=== PATIENT | female | born 1975 ===

== ENCOUNTER 2017-11-19 20:34 | Emergency (ER) | payer SELFPAY ==
[2017-11-19 20:34] VITALS: BMI 29.0
[2017-11-19] MEDS ORDERED: Sodium Chloride 0.9% 1,000 ML IV STA (21:22)
--- NOTE | 2017-11-19 21:57 | ED PDOC ---
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 States that she is having R sided back pain radiating to the front of her abdomen and has only been producing small amounts of urine but denies dysuria nor hematuria. She also endorses leg cramps and mild throbbing headache as well. Denies cough, sick contacts, vomiting, diarrhea. PMD: [facility] Past Medical History Reviewed: Historical Data, Nursing Documentation, Vital Signs Vital Signs: Last Vital Signs Temp 103.2 F H 11/19/17 20:55 Pulse 113 H 11/19/17 20:55 Resp 19 11/19/17 20:55 BP 122/69 11/19/17 20:55 Pulse Ox 100 11/19/17 20:55 - Medical History PMH: Deep Vein Thrombosis Denies: Chronic Kidney Disease - Family History Family History: States: Unknown Family Hx - Home Medications Home Medications: Ambulatory Orders Medication Instructions Recorded Aspirin [Ecotrin] 81 mg PO DAILY 09/10/15 Multivitamin/Iron/Folic Acid 1 tab PO DAILY 09/10/15 [Centrum Complete Multivit Tab] Doxycycline Hyclate 100 mg PO BID #22 capsule 09/13/15 Naproxen [Naprosyn] 500 mg PO Q12 #28 tablet 09/13/15 metroNIDAZOLE [Flagyl] 500 mg PO BID #22 tab 09/13/15 Levofloxacin [Levaquin] 750 mg PO DAILY 10 Days #10 tablet 11/20/17 - Allergies Allergies/Adverse Reactions: Allergies Allergy/AdvReac Type Severity Reaction Status Date / Time No Known Allergies Allergy Verified 09/10/15 10:58 Review of Systems ROS Statement: Except As Marked, All Systems Reviewed And Found Negative Constitutional: Positive for: Fever, Chills Genitourinary Female: Positive for: Other (Hesitancy) Musculoskeletal: Positive for: Back Pain Physical Exam - Reviewed Nursing Documentation Reviewed: Yes Vital Signs Reviewed: Yes - Physical Exam Appears: Positive for: Well, Non-toxic, Uncomfortable Head Exam: Positive for: ATRAUMATIC, NORMAL INSPECTION, NORMOCEPHALIC Skin: Positive for: Normal Color, Warm, DRY Eye Exam: Positive for: EOMI, Normal appearance, PERRL ENT: Positive for: Normal ENT Inspection Neck: Positive for: Normal, Painless ROM Cardiovascular/Chest: Positive for: Regular Rate, Rhythm Respiratory: Positive for: CNT, Normal Breath Sounds Gastrointestinal/Abdominal: Positive for: Normal Exam, Soft Back: Positive for: R CVA Tenderness Extremity: Positive for: Normal ROM. Negative for: Tenderness, Pedal Edema Neurologic/Psych: Positive for: Alert, Oriented - Laboratory Results Result Diagrams: 11/19/17 21:51 11/19/17 21:51 - ECG O2 Sat by Pulse Oximetry: 100 Pulse Ox Interpretation: Normal Medical Decision Making Medical Decision MakinPM Patient presenting with fever, back pain -patient febrile and tachycardic -possibly septic, source likely urinary, possibly UTI v. pyelo -will give fluids, labs, toradol, APAP, and CT [id number] EXAM: CT Abdomen and Pelvis With Intravenous Contrast EXAM DATE/TIME: 11/19/2017 9:58 PM CLINICAL HISTORY: 42 years old, female; Pain; Abdominal pain; Localized; Right; Prior surgery; Surgery date: 6+ months; Surgery type: ; Additional info: Fever, r sided back pain TECHNIQUE: Axial computed tomography images of the abdomen and pelvis with intravenous contrast. All CT scans at this facility use at least one of these dose optimization techniques: automated exposure control; mA and/or kV adjustment per patient size (includes targeted exams where dose is matched to clinical indication); or iterative reconstruction. Coronal and sagittal reformatted images were created and reviewed. CONTRAST: 90 mL of [id number] administered intravenously. COMPARISON: CT - ABD PELVIS W/O PO OR IV CONT 09/10/2015 12:40 PM FINDINGS: Lung bases: Unremarkable. No mass. No consolidation. ABDOMEN: Liver: Unremarkable. No mass. Gallbladder and bile ducts: Unremarkable. No calcified stones. No ductal dilation. Pancreas: Unremarkable. No mass. No ductal dilation. Spleen: Unremarkable. No splenomegaly. Adrenals: Unremarkable. No mass. Kidneys and ureters: Striated nephrograms the right kidney mostly in the upper pole. Perinephric stranding surrounds the entire right kidney. Mild right ureteral increase conspicuity. No significant hydronephrosis. No renal or ureteral calculi. No renal or perirenal abscess. Stomach and bowel: Unremarkable. No obstruction. No mucosal thickening. PELVIS: Appendix: No findings to suggest acute appendicitis. Bladder: Unremarkable. No mass. ASAEL ALMONTE | Preliminary Radiology Report DEALERSHIP MANAGER (QA) DISCREPANCY? If there is a discrepancy between the preliminary and final interpretation, please notify [facility] via [email or web address]. If you do not have access to our QA portal, call our QA team at [phone] CONFIDENTIALITY STATEMENT This report is intended only for the use of the referring physician, and only in accordance with law, If you received this in error, call [phone] Page 2 of 2 Reproductive: Unremarkable as visualized. ABDOMEN and PELVIS: Intraperitoneal space: Unremarkable. No free air. No significant fluid collection. Bones/joints: No acute fracture. No dislocation. Soft tissues: Unremarkable. Vasculature: Unremarkable. No abdominal aortic aneurysm. Lymph nodes: Unremarkable. No enlarged lymph nodes. IMPRESSION: Acute right pyelonephritis. Thank you for allowing us to participate in the care of your patient. Dictated and Authenticated by: Román Mayen MD 11/20/2017 12:10 AM Eastern Time ([place] & [place]) Patient is feeling better. WBC and lactate are normal. CT shows pyelonephritis. Vitals improved significantly. Will give IV levoquin and d/c with PO. Return precautions were discussed. Patient discharged in well appearing condition. Disposition - Clinical Impression Clinical Impression: Pyelonephritis - Disposition Referrals: [facility] [Outside] Disposition: Routine/Home Disposition Time: 00:00 Condition: IMPROVED Prescriptions: Levofloxacin [Levaquin] 750 mg PO DAILY 10 Days #10 tablet Instructions: Kidney Infection Forms: [facility] (Azerbaijani) Print Language: PASHTO
[2017-11-19 22:26] LABS: BASO % 0.4 % (0.0-2.0); EOS % 0.1 % (0.0-4.0); HEMOGLOBIN 13.9 g/dL (12.0-16.0); LYMPH # 1.2 K/uL (1.0-4.3); LYMPH % 11.1 % (20.0-40.0); MEAN CELL VOLUME 82.1 fl (81.0-99.0); MEAN CORPUSCULAR HEMOGLOBIN 27.6 pg (27.0-31.0); MEAN CORPUSCULAR HGB CONC 33.6 g/dL (33.0-37.0); MEAN PLATELET VOLUME 8.2 fl (7.2-11.7); MONO # 0.8 K/uL (0.0-0.8); MONO % 7.6 % (0.0-10.0); NEUT # 8.6 K/uL (1.8-7.0); NEUT % 80.8 % (50.0-75.0); NRBC % 0.1 % (0.0-0.0); RBC 5.05 Mil/uL (3.80-5.20); RED CELL DISTRIBUTION WIDTH 13.7 % (11.5-14.5); WHITE BLOOD COUNT 10.7 K/uL (4.8-10.8)
[2017-11-19 22:26] LABS: VENOUS BLOOD GAS BASE EXCESS 4.9 mmol/L (0.0-2.0); VENOUS BLOOD GAS PCO2 35 mmHg (40-60); VENOUS BLOOD PH 7.51 (7.32-7.43)
[2017-11-19 22:32] LABS: INR 1.4; PROTHROMBIN TIME 15.4 Seconds (9.8-13.1)
[2017-11-19 22:35] LABS: PARTIAL THROMBOPLASTIN TIME 34.9 Seconds (25.6-37.1)
[2017-11-19 22:40] LABS: ALBUMIN 4.1 g/dL (3.5-5.0); ALT/SGPT 25 U/L (9-52); AST/SGOT 28 U/L (14-36); BLOOD UREA NITROGEN 8 mg/dl (7-17); GFR NON-AFRICAN AMERICAN > 60
[2017-11-19] MEDS ORDERED: Iohexol 300 100 ML IJ ONE (22:52)
[2017-11-19] MEDS ORDERED: Sodium Chloride 0.9% 50 ML IV ONE (22:52)
[2017-11-19 23:12] LABS: SQUAMOUS EPITHIAL 1 /hpf (0-5); URINE BACTERIA MOD (<OCC); URINE BILIRUBIN NEGATIVE (NEGATIVE); URINE BLOOD MODERATE (NEGATIVE); URINE CLARITY SLIGHTY-CLOUDY (Clear); URINE COLOR YELLOW (YELLOW); URINE GLUCOSE (UA) NEG (Normal); URINE LEUKOCYTE ESTERASE LARGE Leu/uL (Negative); URINE PROTEIN 30 mg/dL (NEGATIVE); URINE UROBILINOGEN 0.2-1.0 mg/dL (0.2-1.0)
[2017-11-20] MEDS ORDERED: levoFLOXacin 750 mg in D5W 150 ML BAG IVPB STA ×2 (00:19→00:27)
[2017-11-20] MEDS ORDERED: levoFLOXacin 750 mg in D5W 750 MG/150 ML BAG IVPB STA (00:26)
[2017-11-20] MEDS ORDERED: Sodium Chloride 0.9% 1,000 ML IV STA (03:10)
[2017-11-20 05:51] VITALS: RESP 16
[2017-11-20 05:55] VITALS: BP 106/60; PULSE 98; TEMP 99.2; O2SAT 99
--- NOTE | 2017-11-20 08:22 | CARD ---
APPROVED REPORT Date of service: 11/20/2017 EKG Measurement Heart [id number] <Conclusion> Normal sinus rhythm Moderate voltage criteria for LVH, may be normal variant Nonspecific T wave abnormality Abnormal ECG
--- NOTE | 2017-11-20 09:34 | RAD ---
Date of service: 11/19/2017 HISTORY: Sepsis Patient COMPARISON: No prior. FINDINGS: LUNGS: No active pulmonary disease. PLEURA: No significant pleural effusion identified, no pneumothorax apparent. CARDIOVASCULAR: Normal. OSSEOUS STRUCTURES: No significant abnormalities. VISUALIZED UPPER ABDOMEN: Normal. OTHER FINDINGS: None. IMPRESSION: No active disease.
--- NOTE | 2017-11-20 10:32 | CT ---
Date of service: 11/19/2017 PROCEDURE: CT Abdomen and Pelvis with contrast HISTORY: fever, R sided back pain COMPARISON: 09/10/2015 TECHNIQUE: Contrast dose: 90 mL Omnipaque 300 Radiation dose: Total exam DLP = 544.04 mGy-cm. This CT exam was performed using one or more of the following dose reduction techniques: Automated exposure control, adjustment of the mA and/or kV according to patient size, and/or use of iterative reconstruction technique. FINDINGS: LOWER THORAX: Unremarkable. LIVER: Minimal hepatomegaly. The liver measures 19.8 cm craniocaudal. Smooth contour. No mass. Normal attenuation. No biliary dilatation. GALLBLADDER AND BILE DUCTS: Unremarkable. PANCREAS: Unremarkable. No gross lesion or ductal dilatation. SPLEEN: Unremarkable. ADRENALS: Unremarkable. No mass. KIDNEYS AND URETERS: Multiple wedge-shaped areas of decreased cortical enhancement in the right kidney and solitary small wedge-shaped area of diminished cortical enhancement in the upper pole left kidney. Findings consistent with bilateral acute pyelonephritis, right greater than left. No evidence of renal abscess. No renal calculus or urinary tract obstruction. No mass identified. Minimal right perinephric fluid/stranding consistent with acute infectious/inflammatory process. No left perinephric fluid or stranding. VASCULATURE: Unremarkable. No aortic aneurysm. BOWEL: Unremarkable. No obstruction. No gross mural thickening. APPENDIX: Normal appendix. PERITONEUM: Unremarkable. No free fluid. No free air. LYMPH NODES: Unremarkable. No enlarged lymph nodes. BLADDER: Poorly distended REPRODUCTIVE: Normal uterus BONES: No acute fracture. OTHER FINDINGS: None. IMPRESSION: Bilateral pyelonephritis, right greater than left. No abscess identified. No evidence of urinary tract obstruction. Minimal hepatomegaly. No additional abnormality. The preliminary findings for this examination were reported by [facility] at 12:10 a.m. on 11/20/2017. There is concurrence of this report with the preliminary findings.
== END 2017-11-20 05:50 | disposition home or self-care (01) ==
LOC: H.ER 20:34
DX: N10 Acute pyelonephritis (principal); Z86.718 Personal history of other venous thrombosis and embolism
CPT/HCPCS: 71045; 74177; 80053; 81003; 81025; 82803; 83735; 84100; 85025; 85610; 85730; 87040; 87086; 87181; 87205; 93005; 96360; 96374; 99285; J1885; J7030; Q9967

== ENCOUNTER 2017-11-20 17:52 | Inpatient (IN) | payer MEDICAID, SELFPAY ==
[2017-11-20 17:53] VITALS: BMI 29.0
[2017-11-20] MEDS ORDERED: Sodium Chloride 0.9% 1,000 ML IV STA (19:11)
[2017-11-20] MEDS ORDERED: levoFLOXacin 750 mg in D5W 150 ML BAG IVPB STA (19:13)
[2017-11-20] MEDS ORDERED: levoFLOXacin 750 mg in D5W 750 MG/150 ML BAG IVPB STA (19:16)
[2017-11-20] MEDS ORDERED: levoFLOXacin 750 mg in D5W 750 MG/150 ML BAG IVPB ONE (19:22)
[2017-11-20 19:48] LABS: VENOUS BLOOD GAS BASE EXCESS 1.2 mmol/L (0.0-2.0); VENOUS BLOOD GAS PCO2 44 mmHg (40-60); VENOUS BLOOD GAS PO2 29 mm/Hg (30-55); VENOUS BLOOD PH 7.39 (7.32-7.43)
[2017-11-20 19:48] LABS: BASO % 0.4 % (0.0-2.0); EOS % 0.2 % (0.0-4.0); HEMOGLOBIN 12.4 g/dL (12.0-16.0); LYMPH # 1.4 K/uL (1.0-4.3); LYMPH % 13.3 % (20.0-40.0); MEAN CELL VOLUME 83.2 fl (81.0-99.0); MEAN CORPUSCULAR HEMOGLOBIN 27.2 pg (27.0-31.0); MEAN CORPUSCULAR HGB CONC 32.7 g/dL (33.0-37.0); MEAN PLATELET VOLUME 8.3 fl (7.2-11.7); MONO % 9.2 % (0.0-10.0); NEUT # 8.2 K/uL (1.8-7.0); NEUT % 76.9 % (50.0-75.0); RBC 4.54 Mil/uL (3.80-5.20); RED CELL DISTRIBUTION WIDTH 13.7 % (11.5-14.5); WHITE BLOOD COUNT 10.7 K/uL (4.8-10.8)
--- NOTE | 2017-11-20 19:52 | ED PDOC ---
HPI: Abdomen Time Seen by Provider: 11/20/17 19:07 Chief Complaint (Nursing): Abdominal Pain History Per: Patient Onset/Duration Of Symptoms: Days Current Symptoms Are (Timing): Still Present Associated Symptoms: Fever, Nausea Additional Complaint(s): Patient returns to ER today for worsening pain and continued fevers. Patient was diagnosed with pyelonephritis on R kidney yesterday, received one dose of IV levoquin and was discharged. Patient's TMAx was 103 yesterday. Today had continued fevers all day and worsening pain with nausea and urinary hesitancy. Past Medical History Reviewed: Historical Data, Vital Signs Vital Signs: Last Vital Signs Temp 98.4 F 11/21/17 00:16 Pulse 74 11/21/17 00:16 Resp 18 11/21/17 00:16 BP 99/64 L 11/21/17 00:16 Pulse Ox 100 11/21/17 00:16 - Medical History PMH: Deep Vein Thrombosis Denies: Chronic Kidney Disease - Family History Family History: States: Unknown Family Hx - Home Medications Home Medications: Ambulatory Orders Medication Instructions Recorded Aspirin [Ecotrin] 81 mg PO DAILY 11/20/17 - Allergies Allergies/Adverse Reactions: Allergies Allergy/AdvReac Type Severity Reaction Status Date / Time No Known Allergies Allergy Verified 09/10/15 10:58 Review of Systems ROS Statement: Except As Marked, All Systems Reviewed And Found Negative Constitutional: Positive for: Fever, Chills Gastrointestinal: Positive for: Nausea, Abdominal Pain Physical Exam - Reviewed Nursing Documentation Reviewed: Yes Vital Signs Reviewed: Yes - Physical Exam Appears: Positive for: Well, Non-toxic, No Acute Distress Head Exam: Positive for: ATRAUMATIC, NORMAL INSPECTION, NORMOCEPHALIC Skin: Positive for: Normal Color, Warm, DRY Eye Exam: Positive for: EOMI, Normal appearance, PERRL ENT: Positive for: Normal ENT Inspection Neck: Positive for: Normal, Painless ROM Cardiovascular/Chest: Positive for: Regular Rate, Rhythm Respiratory: Positive for: CNT, Normal Breath Sounds Gastrointestinal/Abdominal: Positive for: Normal Exam, Bowel Sounds, Soft. Negative for: Tenderness, Organomegaly, Mass, Distended, Guarding Back: Positive for: Normal Inspection, R CVA Tenderness Extremity: Positive for: Normal ROM Neurologic/Psych: Positive for: Alert, Oriented - Laboratory Results Result Diagrams: 11/20/17 19:40 11/20/17 19:40 - ECG O2 Sat by Pulse Oximetry: 100 Pulse Ox Interpretation: Normal Medical Decision Making Medical Decision MakinAM Patient returns for worsening pain and continued fevers after diagnosis with pyelonephritis -Patient will require admission for outpatient failure of pyelo -Pending labs, ABx, cultures -Of note patient had Gram Positive Rods on blood cultures from yesterday Disposition - Clinical Impression Clinical Impression: Pyelonephritis - Disposition Disposition Time: 20:00 Condition: FAIR
[2017-11-20 19:55] LABS: SQUAMOUS EPITHIAL < 1 /hpf (0-5); URINE BILIRUBIN NEGATIVE (NEGATIVE); URINE BLOOD SMALL (NEGATIVE); URINE CLARITY CLEAR (Clear); URINE COLOR YELLOW (YELLOW); URINE GLUCOSE (UA) NEG (Normal); URINE LEUKOCYTE ESTERASE TRACE Leu/uL (Negative); URINE PROTEIN 30 mg/dL (NEGATIVE); URINE UROBILINOGEN 0.2-1.0 mg/dL (0.2-1.0)
[2017-11-20 20:07] LABS: BLOOD UREA NITROGEN 5 mg/dl (7-17); CALCIUM 8.4 mg/dL (8.4-10.2); GFR NON-AFRICAN AMERICAN > 60
--- NOTE | 2017-11-20 21:32 | CP.PCM.HP ---
History of Present Illness - History of Present Illness History of Present Illness: 42 yo ,f, PMhx/o LLE DVT presents to ED c/o right flank pain started 4 days ago , radiated to RUQ and right leg, intermittent, associated with subjective fever 3 times/day , chills, nausea w/o vomiting and occs headache. Patient with menses for the last 6 days. She denies dysuria, urgency, chest pain, cough, SOB , dizziness. calf pain, leg swelling. Patient evaluated in ED yesterday, given Levaquin IV for pyelonephritis and returns to Ed with persistent fever and right flank pain. Blood cx done yesterday showed gram neg rods On my evaluation patient AAOx3, hemodynamically stable, no acute distress PMD: [facility]. Last visit 06/2017 dr blunt PMHx: o LLE DVT in 2011 Allergies: NKDA Meds: aspirin 81 mg daily PSurghx: c section x 2 PSHx: =ETOH social, neg rect drugs, cig Code status: Full code Next of kin: Madalyn Mar Ed course VS: T 100.5 F Pulse 100 Resp 16 BP 108/64 PE: CVAT b/l. Abd TD RUQ Labs: CBC, CMP, VBG nl. UA hematuria, nitrate neg, leukocyte sterace trace, leukocyturia. urine preg neg. -EKG pending Imaging: B/l pyelonephritis, right greater than left. No urinary tract obst. Minimal hepatomegaly Meds: Levaquin 750 mg daily, Toradol 30 mg Iv daily, NS 1l Present on Admission - Present on Admission Any Indicators Present on Admission: Yes History of DVT/PE: Yes History of Uncontrolled Diabetes: No Urinary Catheter: No Decubitus Ulcer Present: No Review of Systems - Review of Systems All systems: reviewed and no additional remarkable complaints except - Gastrointestinal Gastrointestinal: Abdominal Pain, Nausea - Genitourinary Genitourinary: Flank Pain - Neurological Neurological: Headaches Past Patient History - Past Medical History & Family History Past Medical History?: Yes - Past Social History Smoking Status: Never Smoked - CARDIAC Hx Cardiac Disorders: No - PULMONARY Hx Respiratory Disorders: No - NEUROLOGICAL Hx Neurological Disorder: No - HEENT Hx HEENT Problems: No - RENAL Hx Chronic Kidney Disease: No - ENDOCRINE/METABOLIC Hx Endocrine Disorders: No - HEMATOLOGICAL/ONCOLOGICAL Hx Blood Disorders: Yes Other/Comment: DVT 2011 - INTEGUMENTARY Hx Dermatological Problems: No - MUSCULOSKELETAL/RHEUMATOLOGICAL Hx Musculoskeletal Disorders: No Hx Falls: No - GASTROINTESTINAL Hx Gastrointestinal Disorders: No - GENITOURINARY/GYNECOLOGICAL Hx Genitourinary Disorders: No - PSYCHIATRIC Hx Substance Use: No - SURGICAL HISTORY Hx Section: Yes (x2) - ANESTHESIA Hx Anesthesia: Yes Hx Anesthesia Reactions: No Hx Malignant Hyperthermia: No Meds Allergies/Adverse Reactions: Allergies Allergy/AdvReac Type Severity Reaction Status Date / Time No Known Allergies Allergy Verified 09/10/15 10:58 Physical Exam - Constitutional Appears: Non-toxic, No Acute Distress - Head Exam Head Exam: ATRAUMATIC, NORMOCEPHALIC - Eye Exam Eye Exam: Normal appearance - ENT Exam ENT Exam: Mucous Membranes Moist - Neck Exam Neck exam: Positive for: Normal Inspection - Respiratory Exam Respiratory Exam: Clear to Auscultation Bilateral. absent: Rales, Rhonchi, Wheezes - Cardiovascular Exam Cardiovascular Exam: REGULAR RHYTHM, +S1, +S2 - GI/Abdominal Exam GI & Abdominal Exam: Normal Bowel Sounds, Soft, Tenderness (RUQ). absent: Guarding, Rebound - Extremities Exam Extremities exam: Positive for: normal inspection. Negative for: pedal edema - Back Exam Back exam: CVA tenderness (L), CVA tenderness (R) - Neurological Exam Neurological exam: Alert, Oriented x3 - Psychiatric Exam Psychiatric exam: Normal Affect, Normal Mood - Skin Skin Exam: Intact Results - Vital Signs Recent Vital Signs: Last Vital Signs Temp 100.5 F H 11/20/17 18:21 Pulse 100 H 11/20/17 18:21 Resp 16 11/20/17 18:21 BP 108/64 11/20/17 18:21 Pulse Ox 100 11/20/17 19:53 - Labs Result Diagrams: 11/20/17 19:40 11/20/17 19:40 Labs: Laboratory Results - last 24 hr 11/20/17 11/20/17 11/20/17 19:40 19:40 19:40 WBC 10.7 RBC 4.54 Hgb 12.4 Hct 37.8 MCV 83.2 MCH 27.2 MCHC 32.7 L RDW 13.7 Plt Count 175 MPV 8.3 Neut % (Auto) 76.9 H Lymph % (Auto) 13.3 L [place] % (Auto) 9.2 Eos % (Auto) 0.2 Baso % (Auto) 0.4 Neut # (Auto) 8.2 H Lymph # (Auto) 1.4 [place] # (Auto) 1.0 H Eos # (Auto) 0.0 Baso # (Auto) 0.0 pO2 VBG pH VBG pCO2 VBG HCO3 VBG Total CO2 VBG O2 Sat (Calc) VBG Base Excess VBG Potassium Glucose Lactate FiO2 Sodium 138 Potassium 3.6 Chloride 106 Carbon Dioxide 24 Anion Gap 12 BUN 5 L Creatinine 0.6 L Est GFR ( Amer) > 60 Est GFR (Non-Af Amer) > 60 Random Glucose 103 Calcium 8.4 Venous Blood Potassium Urine Color Yellow Urine Clarity Clear Urine pH 7.0 Ur Specific [place] 1.009 Urine Protein 30 Urine Glucose (UA) Neg Urine Ketones Negative Urine Blood Small Urine Nitrate Negative Urine Bilirubin Negative Urine Urobilinogen 0.2-1.0 Ur Leukocyte Esterase Trace Urine RBC (Auto) 5 H Urine Microscopic WBC 10 H Ur Squamous Epith Cells < 1 11/20/17 19:42 WBC RBC Hgb Hct MCV MCH MCHC RDW Plt Count MPV Neut % (Auto) Lymph % (Auto) [place] % (Auto) Eos % (Auto) Baso % (Auto) Neut # (Auto) Lymph # (Auto) [place] # (Auto) Eos # (Auto) Baso # (Auto) pO2 29 L VBG pH 7.39 VBG pCO2 44 VBG HCO3 24.7 VBG Total CO2 28.0 VBG O2 Sat (Calc) 40.5 VBG Base Excess 1.2 VBG Potassium 3.1 L Glucose 101 Lactate 1.2 FiO2 21.0 Sodium 137.0 Potassium Chloride 104.0 Carbon Dioxide Anion Gap BUN Creatinine Est GFR ( Amer) Est GFR (Non-Af Amer) Random Glucose Calcium Venous Blood Potassium 3.1 L Urine Color Urine Clarity Urine pH Ur Specific [place] Urine Protein Urine Glucose (UA) Urine Ketones Urine Blood Urine Nitrate Urine Bilirubin Urine Urobilinogen Ur Leukocyte Esterase Urine RBC (Auto) Urine Microscopic WBC Ur Squamous Epith Cells Assessment & Plan - Assessment and Plan (Free Text) Plan: 42 yo ,f, PMhx/o LLE DVT Admitted for pyleonephrytis, sepsis and bacteremia 1) Acute pyelonephritis -Ua+, CT abd: b/L more right side -S/p Levaquin in Ed x2 -c/w Levaquin 750 mg IV daily -will cover also with zosyn -IV fluids NS 110 ml/h -f/u Urine cx, CBC 2) Sepsis with Bacteremia -SIRS + UA + Blood cx + gram neg rods -2/2 pyelonephritis -VBG nl, lactic acid normal -c/w Levaquin -Added Zosyn to cover pseudomona -ID consult suggested -f/u urine cx, blood cx sensitivity 3) Hx/o DVT -right leg DVT in 2011 4) DVT Prophylaxis Lovenox 40 mg sc daily
[2017-11-20] MEDS ORDERED: Sodium Chloride 0.9% 1,000 ML IV SCH (22:00)
[2017-11-21] MEDS: Piperacillin/Tazobact 4.5 GM in Sodium Chloride 0.9% 100 ML IVPB SCH ×4 (04:30→23:00)
[2017-11-21 07:45] LABS: BASO % 0.2 % (0.0-2.0); EOS # 0.1 K/uL (0.0-0.7); EOS % 0.8 % (0.0-4.0); HEMOGLOBIN 11.5 g/dL (12.0-16.0); LYMPH # 1.4 K/uL (1.0-4.3); LYMPH % 17.8 % (20.0-40.0); MEAN CELL VOLUME 81.7 fl (81.0-99.0); MEAN CORPUSCULAR HEMOGLOBIN 27.7 pg (27.0-31.0); MEAN CORPUSCULAR HGB CONC 33.9 g/dL (33.0-37.0); MEAN PLATELET VOLUME 8.7 fl (7.2-11.7); MONO # 0.7 K/uL (0.0-0.8); MONO % 9.7 % (0.0-10.0); NEUT # 5.5 K/uL (1.8-7.0); NEUT % 71.5 % (50.0-75.0); RBC 4.15 Mil/uL (3.80-5.20); RED CELL DISTRIBUTION WIDTH 13.9 % (11.5-14.5); WHITE BLOOD COUNT 7.7 K/uL (4.8-10.8)
--- NOTE | 2017-11-21 08:18 | CARD ---
APPROVED REPORT Date of service: 11/20/2017 <Conclusion> Normal sinus rhythm Minimal voltage criteria for LVH, may be normal variant Borderline ECG
[2017-11-21 08:22] LABS: ALB/GLOB RATIO 0.9 (1.0-2.1); ALT/SGPT 22 U/L (9-52); AST/SGOT 23 U/L (14-36); BLOOD UREA NITROGEN 6 mg/dl (7-17); CALCIUM 7.8 mg/dL (8.4-10.2); GFR NON-AFRICAN AMERICAN > 60
[2017-11-21] MEDS ORDERED: Potassium Chloride 20 mEq ER Tab PO ONE (08:26)
--- NOTE | 2017-11-21 08:28 | CP.PCM.PN ---
Subjective - Date & Time of Evaluation Date of Evaluation: 11/21/17 Time of Evaluation: 08:28 - Subjective Subjective: No acute overnight events. Pt endorsing mild R flank pain b/l. Denies n/v chills and remains without fever. Objective - Vital Signs/Intake and Output Vital Signs (last 24 hours): Temp Pulse Resp BP Pulse Ox 98.5 F 82 18 111/67 98 11/21/17 07:58 11/21/17 07:58 11/21/17 07:58 11/21/17 07:58 11/21/17 07:58 - Medications Medications: Current Medications Acetaminophen (Tylenol 325mg Tab) 650 mg PO Q6 PRN PRN Reason: Pain, Mild (1-3) Acetaminophen (Tylenol 325mg Tab) 650 mg PO Q6 PRN PRN Reason: Fever >100.4 F Enoxaparin Sodium (Lovenox) 40 mg SC DAILY DEANDRE PRN Reason: Protocol Piperacillin Sod/Tazobactam (Sod 4.5 gm/ Sodium Chloride) 100 mls @ 100 mls/hr IVPB Q6 DEANDRE PRN Reason: Protocol Last Admin: 11/21/17 04:30 Dose: 100 mls/hr Sodium Chloride (Sodium Chloride 0.9%) 1,000 mls @ 130 mls/hr IV .[id number] [facility] Stop: 11/21/17 21:53 Vancomycin HCl 1 gm/ Sodium (Chloride) 250 mls @ 166.667 mls/hr IVPB DAILY DEANDRE PRN Reason: Protocol Ketorolac Tromethamine (Toradol) 15 mg IVP Q6 PRN PRN Reason: Pain, moderate (4-7) Last Admin: 11/21/17 05:26 Dose: 15 mg Morphine Sulfate (Morphine) 2 mg IVP Q6 PRN PRN Reason: Pain, severe (8-10) Ondansetron HCl (Zofran Inj) 4 mg IVP Q6 PRN PRN Reason: Nausea/Vomiting Potassium Chloride (K-Dur 20 Meq Er Tab) 40 meq PO ONCE ONE Stop: 11/21/17 08:27 - Labs Labs: 11/21/17 06:00 11/21/17 06:00 - Constitutional Appears: No Acute Distress - Head Exam Head Exam: NORMAL INSPECTION - Eye Exam Eye Exam: EOMI, Normal appearance - ENT Exam ENT Exam: Mucous Membranes Moist - Respiratory Exam Respiratory Exam: Clear to Ausculation Bilateral, NORMAL BREATHING PATTERN. absent: Wheezes - Cardiovascular Exam Cardiovascular Exam: REGULAR RHYTHM, +S1, +S2 - GI/Abdominal Exam GI & Abdominal Exam: Soft, Normal Bowel Sounds. absent: Tenderness - Extremities Exam Extremities Exam: Normal Inspection. absent: Calf Tenderness, Pedal Edema - Back Exam Back Exam: NORMAL INSPECTION. absent: CVA tenderness (L), CVA tenderness (R) - Neurological Exam Neurological Exam: Alert, Awake - Psychiatric Exam Psychiatric exam: Normal Mood Assessment and Plan - Assessment and Plan (Free Text) Assessment: Assessment/Plan: 42 YO Female with PMhx of LLE DVT admitted for pyleonephrytis, sepsis and bacteremia. Sepsis with bacteremia -likely urosepsis, improving -SIRS with bcx pos x 2 on 11/19 for gram neg rods -s/p Levaquin in ED x2 -echo pending -cont Vanc (D1) and Zosyn (D2) -cont IVFs -will consider ID consult UTI -Ucx pos, UA sig trace leukes -CT 11/21/27: suggestive bilateral pyelonephritis (R>L) -hx of recurrent UTI -Ucx 11/19 sig for gram neg rods, UA 11/20 sig for trace leukes -cont with Vanc and zosyn -follow up ucx and bcx final results Hx/o DVT -right leg DVT in 2011 -not on anticoagulation DVT Prophylaxis Lovenox 40 mg sc daily
[2017-11-21] MEDS: Enoxaparin 40 mg Syringe SC SCH (08:53)
[2017-11-21] MEDS: Sodium Chloride 0.9% 1,000 ML IV SCH ×2 (08:53→16:50)
[2017-11-21] MEDS ORDERED: levoFLOXacin 750 mg in D5W 750 MG/150 ML BAG IVPB SCH (20:00)
[2017-11-22] MEDS: Piperacillin/Tazobact 4.5 GM in Sodium Chloride 0.9% 100 ML IVPB SCH ×2 (04:10→09:26)
[2017-11-22 07:52] LABS: BLOOD UREA NITROGEN 4 mg/dl (7-17); GFR NON-AFRICAN AMERICAN > 60
[2017-11-22] MEDS: Enoxaparin 40 mg Syringe SC SCH (09:27)
--- NOTE | 2017-11-22 15:49 | CP.PCM.PN ---
Subjective - Date & Time of Evaluation Date of Evaluation: 11/22/17 Time of Evaluation: 08:45 - Subjective Subjective: No overnight events. Patient feeling better this AM. Complaining of nausea, no vomiting. Pain is improving. Tolerating diet despite nausea but would like liquid diet instead. No fevers. blood culture (+) x 3, sensitivities reviewed, abx changed to Rocephin 2gm daily. Awaiting Echocardiogram. Objective - Vital Signs/Intake and Output Vital Signs (last 24 hours): Temp Pulse Resp BP Pulse Ox 99.5 F 63 18 128/75 97 11/22/17 13:00 11/22/17 13:00 11/22/17 13:00 11/22/17 13:00 11/22/17 13:00 - Medications Medications: Current Medications Acetaminophen (Tylenol 325mg Tab) 650 mg PO Q6 PRN PRN Reason: Pain, Mild (1-3) Acetaminophen (Tylenol 325mg Tab) 650 mg PO Q6 PRN PRN Reason: Fever >100.4 F Enoxaparin Sodium (Lovenox) 40 mg SC DAILY [facility] PRN Reason: Protocol Last Admin: 11/22/17 09:27 Dose: 40 mg Ceftriaxone Sodium 2 gm/ (Sodium Chloride) 100 mls @ 100 mls/hr IVPB DAILY [facility] PRN Reason: Protocol Ketorolac Tromethamine (Toradol) 15 mg IVP Q6 PRN PRN Reason: Pain, moderate (4-7) Last Admin: 11/21/17 23:20 Dose: 15 mg Morphine Sulfate (Morphine) 2 mg IVP Q6 PRN PRN Reason: Pain, severe (8-10) Ondansetron HCl (Zofran Odt) 4 mg PO Q8H PRN PRN Reason: Nausea/Vomiting - Labs Labs: 11/21/17 06:00 11/22/17 06:30 - Constitutional Appears: Non-toxic, No Acute Distress - Head Exam Head Exam: ATRAUMATIC, NORMAL INSPECTION, NORMOCEPHALIC - Respiratory Exam Respiratory Exam: Clear to Ausculation Bilateral, NORMAL BREATHING PATTERN - Cardiovascular Exam Cardiovascular Exam: REGULAR RHYTHM, +S1, +S2. absent: Bradycardia, Tachycardia - GI/Abdominal Exam GI & Abdominal Exam: Soft, Normal Bowel Sounds. absent: Distended, Guarding - Extremities Exam Extremities Exam: Full ROM, Normal Inspection. absent: Pedal Edema - Neurological Exam Neurological Exam: Alert, Awake, CN II-XII Intact, Normal Gait, Oriented x3 - Psychiatric Exam Psychiatric exam: Normal Affect, Normal Mood Assessment and Plan - Assessment and Plan (Free Text) Assessment: 42 YO Female with PMhx of LLE DVT admitted for pyleonephrytis, sepsis and bacteremia. Awaiting echo, antibiotics adjusted now that sensitivities available. Patient switched to Liquid diet due to preference, having some nausea. Zofran ordered. Remains afebrile, without leukocytosis. Sepsis with bacteremia, UTI+ -likely urosepsis. -SIRS with bcx pos x 2 on 11/19 for gram neg rods -repeat blood cultures NGTD from 11/20 -s/p Levaquin in ED x2, s/p cont Vanc (D2) and Zosyn (D3) -echo pending -will d/c IVF patients BP has been WNL -D/c Zosyn/Vanco - start Rocephin 2gm IV daily -will consider ID consult Hx/o DVT -right leg DVT in 2011 -not on anticoagulation as outpatient DVT Prophylaxis Lovenox 40 mg sc daily
[2017-11-23 07:05] LABS: BASO % 0.6 % (0.0-2.0); EOS # 0.1 K/uL (0.0-0.7); HEMOGLOBIN 11.4 g/dL (12.0-16.0); LYMPH # 1.9 K/uL (1.0-4.3); LYMPH % 31.4 % (20.0-40.0); MEAN CELL VOLUME 81.3 fl (81.0-99.0); MEAN CORPUSCULAR HEMOGLOBIN 27.1 pg (27.0-31.0); MEAN CORPUSCULAR HGB CONC 33.4 g/dL (33.0-37.0); MEAN PLATELET VOLUME 8.8 fl (7.2-11.7); MONO # 0.7 K/uL (0.0-0.8); MONO % 11.1 % (0.0-10.0); NEUT # 3.3 K/uL (1.8-7.0); NEUT % 54.9 % (50.0-75.0); RBC 4.19 Mil/uL (3.80-5.20); RED CELL DISTRIBUTION WIDTH 13.7 % (11.5-14.5); WHITE BLOOD COUNT 5.9 K/uL (4.8-10.8)
[2017-11-23 07:29] LABS: ALB/GLOB RATIO 0.8 (1.0-2.1); ALBUMIN 3.1 g/dL (3.5-5.0); ALT/SGPT 31 U/L (9-52); AST/SGOT 28 U/L (14-36); BLOOD UREA NITROGEN 3 mg/dl (7-17); CALCIUM 8.6 mg/dL (8.4-10.2); GFR NON-AFRICAN AMERICAN > 60
--- NOTE | 2017-11-23 07:39 | CP.PCM.PN ---
Subjective - Date & Time of Evaluation Date of Evaluation: 11/23/17 Time of Evaluation: 07:36 - Subjective Subjective: Fever overnight T max 101.1 Afebrile now. Pt states that flank pain has improved since admission to hospital. Denies dyspnea, chest pain, n/v, chills. Tolerating PO and ambulatory. Objective - Vital Signs/Intake and Output Vital Signs (last 24 hours): Temp Pulse Resp BP Pulse Ox 99 F 60 18 138/77 96 11/23/17 05:00 11/23/17 05:00 11/23/17 05:00 11/23/17 05:00 11/23/17 05:00 - Medications Medications: Current Medications Acetaminophen (Tylenol 325mg Tab) 650 mg PO Q6 PRN PRN Reason: Pain, Mild (1-3) Last Admin: 11/22/17 16:23 Dose: 650 mg Acetaminophen (Tylenol 325mg Tab) 650 mg PO Q6 PRN PRN Reason: Fever >100.4 F Last Admin: 11/23/17 00:25 Dose: 650 mg Enoxaparin Sodium (Lovenox) 40 mg SC DAILY [facility] PRN Reason: Protocol Last Admin: 11/22/17 09:27 Dose: 40 mg Piperacillin Sod/Tazobactam (Sod 3.375 gm/ Sodium Chloride) 100 mls @ 100 mls/ hr IVPB Q6 [facility] PRN Reason: Protocol Ketorolac Tromethamine (Toradol) 15 mg IVP Q6 PRN PRN Reason: Pain, moderate (4-7) Last Admin: 11/21/17 23:20 Dose: 15 mg Morphine Sulfate (Morphine) 2 mg IVP Q6 PRN PRN Reason: Pain, severe (8-10) Ondansetron HCl (Zofran Odt) 4 mg PO Q8H PRN PRN Reason: Nausea/Vomiting - Labs Labs: 11/23/17 06:15 11/23/17 06:15 - Constitutional Appears: No Acute Distress - Head Exam Head Exam: NORMAL INSPECTION - Eye Exam Eye Exam: Normal appearance - ENT Exam ENT Exam: Mucous Membranes Moist - Respiratory Exam Respiratory Exam: Clear to Ausculation Bilateral, NORMAL BREATHING PATTERN. absent: Wheezes - Cardiovascular Exam Cardiovascular Exam: REGULAR RHYTHM, +S1, +S2 - GI/Abdominal Exam GI & Abdominal Exam: Soft, Normal Bowel Sounds. absent: Tenderness - Extremities Exam Extremities Exam: absent: Calf Tenderness, Pedal Edema - Back Exam Back Exam: NORMAL INSPECTION. absent: CVA tenderness (L), CVA tenderness (R) - Neurological Exam Neurological Exam: Alert, Awake Assessment and Plan - Assessment and Plan (Free Text) Assessment: Assessment/Plan: 42 YO Female with PMhx of LLE DVT admitted for pyleonephrytis, sepsis and bacteremia. Sepsis, Bacteremia with +UTI -likely urosepsis, improving -CT 11/21/27: suggestive bilateral pyelonephritis (R>L) -bcx pos x 2 and ucx pos on 11/19 for gram neg rods (sensitivities noted) -bcx neg x 2 11/20; bcx 11/23 pending -s/p Levaquin in ED x2 -d/c Vanc and Zosyn, pt was started on Rocephin -Fever overnight with Rocephin, will switch back to Zosyn (D3) today; Total abx D4 -echo 11/23: no valvular vegetations noted, EF 65% -ID consulted; pending recs Hx/o DVT -right leg DVT in 2011 -not on chronic anticoagulation DVT Prophylaxis Lovenox 40 mg sc daily
[2017-11-23] MEDS: Enoxaparin 40 mg Syringe SC SCH (08:48)
[2017-11-23] MEDS: Piperacillin/Tazobact 3.375 GM in Sodium Chloride 0.9% 100 ML IVPB SCH ×2 (10:46→19:05)
--- NOTE | 2017-11-23 14:22 | CARD ---
APPROVED REPORT Date of service: 11/23/2017 EXAM: Two-dimensional and M-mode echocardiogram with Doppler and color Doppler. Other Information Quality : GoodRhythm : NSR INDICATION Subacute bacterial endocarditis 2D DIMENSIONS IVSd0.99 (0.7-1.1cm)LVDd4.79 (3.9-5.9cm) LVOT Diameter2.15 (1.8-2.4cm)PWd0.86 (0.7-1.1cm) IVSs1.19 (0.8-1.2cm)LVDs3.52 (2.5-4.0cm) FS (%) 26.6 %PWs0.91 (0.8-1.2cm) M-Mode DIMENSIONS Left Atrium (MM)3.59 (2.5-4.0cm)IVSd0.91 (0.7-1.1cm) Aortic Root3.06 (2.2-3.7cm)LVDd5.03 (4.0-5.6cm) Aortic Cusp Exc.2.09 (1.5-2.0cm)PWd1.09 (0.7-1.1cm) IVSs1.15 cmFS (%) 33 % LVDs3.35 (2.0-3.8cm)PWs1.32 cm Aortic Valve AoV Peak Pasmuvap343.8cm/sAoV VTI29.5cmAO Peak GR.8mmHg LVOT Peak Lbgveafi01.8cm/sLVOT VTI19.46cmAO Mean GR.4mmHg Mitral Valve MV E Jvsxwslf907.5cm/sMV DECEL [id number] A Cnacdtgz04.5cm/s MV PFR10cmA/A ratio1.9MVA (PHT)4.21cm2 TDI Lateral E' Peak V17.93cm/sMedial E' Peak V12.63cm/sE/Lateral E'6.0 E/Medial E'8.5 Pulmonary Valve PV Peak Ssynmhmo37.8cm/s LEFT VENTRICLE The left ventricle is normal size. There is normal left ventricular wall thickness. The left ventricular ejection fraction is within the normal range. The Ejection Fraction is 65%. No regional wall motion abnormalities noted.. The left ventricular diastolic function is normal. No left ventricle thrombus noted on this study. There is no ventricular septal defect visualized. There is no mass noted in the left ventricle. RIGHT VENTRICLE The right ventricle is normal size. There is normal right ventricular wall thickness. The right ventricular systolic function is normal. ATRIA The left atrium size is normal. The right atrium size is normal. The interatrial septum is intact with no evidence for an atrial septal defect. AORTIC VALVE The aortic valve is normal in structure. No aortic regurgitation is present. There is no aortic valvular stenosis. MITRAL VALVE The mitral valve is normal in structure. There is no mitral valve stenosis. There is no mitral valve regurgitation noted. TRICUSPID VALVE The tricuspid valve is normal in structure. There is trivial tricuspid valve regurgitation noted. PULMONIC VALVE The pulmonary valve is normal in structure. There is mild pulmonic valvular regurgitation. GREAT VESSELS The aortic root is normal in size. The ascending aorta is normal in size. The pulmonary artery is normal. The IVC is normal in size and collapses >50% with inspiration. PERICARDIAL EFFUSION There is no pericardial effusion. <Conclusion> Mild pulmonic insufficiency Otherwise essentially normal transthoracic echocardiogram. The Ejection Fraction is 65%. No evidence of valvular vegetation
[2017-11-23] MEDS: Lactobacillus Acidophilus 500 MU Cap PO SCH (19:02)
[2017-11-23] MEDS ORDERED: cefTRIAXone 2 GM in Sodium Chloride 0.9% 100 ML IVPB SCH (21:00)
[2017-11-24] MEDS: Piperacillin/Tazobact 3.375 GM in Sodium Chloride 0.9% 100 ML IVPB SCH ×5 (00:05→21:33)
[2017-11-24 05:58] LABS: BASO % 0.6 % (0.0-2.0); EOS # 0.3 K/uL (0.0-0.7); EOS % 5.1 % (0.0-4.0); HEMOGLOBIN 11.5 g/dL (12.0-16.0); LYMPH # 2.2 K/uL (1.0-4.3); LYMPH % 41.7 % (20.0-40.0); MEAN CELL VOLUME 81.3 fl (81.0-99.0); MEAN CORPUSCULAR HEMOGLOBIN 27.1 pg (27.0-31.0); MEAN CORPUSCULAR HGB CONC 33.3 g/dL (33.0-37.0); MEAN PLATELET VOLUME 8.7 fl (7.2-11.7); MONO # 0.7 K/uL (0.0-0.8); MONO % 13.8 % (0.0-10.0); NEUT # 2.1 K/uL (1.8-7.0); NEUT % 38.8 % (50.0-75.0); NRBC % 0.1 % (0.0-0.0); RBC 4.26 Mil/uL (3.80-5.20); RED CELL DISTRIBUTION WIDTH 13.8 % (11.5-14.5); WHITE BLOOD COUNT 5.4 K/uL (4.8-10.8)
--- NOTE | 2017-11-24 08:29 | CP.PCM.PN ---
Subjective - Date & Time of Evaluation Date of Evaluation: 11/24/17 Time of Evaluation: 08:26 - Subjective Subjective: No acute overnight events. Pt states that she is feeling well this AM. Denies chills, fever, night sweats, abdominal pain, no urinary symptoms. Endorsing good PO intake, ambulatory and remains without fever. Objective - Vital Signs/Intake and Output Vital Signs (last 24 hours): Temp Pulse Resp BP Pulse Ox 97.9 F 50 L 18 119/72 98 11/24/17 08:20 11/24/17 08:20 11/24/17 08:20 11/24/17 08:20 11/24/17 08:20 - Medications Medications: Current Medications Acetaminophen (Tylenol 325mg Tab) 650 mg PO Q6 PRN PRN Reason: Pain, Mild (1-3) Last Admin: 11/23/17 08:51 Dose: 650 mg Acetaminophen (Tylenol 325mg Tab) 650 mg PO Q6 PRN PRN Reason: Fever >100.4 F Last Admin: 11/23/17 00:25 Dose: 650 mg Enoxaparin Sodium (Lovenox) 40 mg SC DAILY [facility] PRN Reason: Protocol Last Admin: 11/23/17 08:48 Dose: 40 mg Famotidine (Pepcid) 20 mg PO DAILY [facility] Last Admin: 11/23/17 19:02 Dose: 20 mg Piperacillin Sod/Tazobactam (Sod 3.375 gm/ Sodium Chloride) 100 mls @ 100 mls/ hr IVPB Q6 [facility] PRN Reason: Protocol Last Admin: 11/24/17 05:04 Dose: 100 mls/hr Ketorolac Tromethamine (Toradol) 15 mg IVP Q6 PRN PRN Reason: Pain, moderate (4-7) Last Admin: 11/24/17 02:51 Dose: 15 mg Lactobacillus Acidophilus (Bacid Acidophilus) 1 cap PO BID [facility] Last Admin: 11/23/17 19:02 Dose: 1 cap Morphine Sulfate (Morphine) 2 mg IVP Q6 PRN PRN Reason: Pain, severe (8-10) Ondansetron HCl (Zofran Odt) 4 mg PO Q8H PRN PRN Reason: Nausea/Vomiting - Labs Labs: 11/24/17 04:55 11/23/17 06:15 - Constitutional Appears: No Acute Distress - Head Exam Head Exam: NORMAL INSPECTION - Eye Exam Eye Exam: Normal appearance - ENT Exam ENT Exam: Mucous Membranes Moist - Respiratory Exam Respiratory Exam: Clear to Ausculation Bilateral, NORMAL BREATHING PATTERN. absent: Wheezes - Cardiovascular Exam Cardiovascular Exam: REGULAR RHYTHM, +S1, +S2 - GI/Abdominal Exam GI & Abdominal Exam: Soft, Normal Bowel Sounds. absent: Tenderness - Extremities Exam Extremities Exam: Normal Inspection. absent: Pedal Edema - Back Exam Back Exam: NORMAL INSPECTION. absent: CVA tenderness (L), CVA tenderness (R) - Neurological Exam Neurological Exam: Alert, Awake Assessment and Plan - Assessment and Plan (Free Text) Assessment: Assessment/Plan: 42 YO Female with PMhx of LLE DVT admitted for pyleonephrytis, sepsis and bacteremia. Bacteremia, on IV abx D5 Sepsis, Bacteremia with +UTI -likely urosepsis, improving -CT 11/21/27: suggestive bilateral pyelonephritis (R>L) -bcx pos x 2 and ucx pos on 11/19 for gram neg rods (sensitivities noted) -bcx neg x 2 11/20; bcx 11/23 pending -s/p Levaquin in ED x2 -d/c Vanc and Zosyn, pt was started on Rocephin -Fever overnight with Rocephin, will switch back to Zosyn (D4) today; Total abx D5 -echo 11/23: no valvular vegetations noted, EF 65% -ID consulted; pending recs Hx/o DVT -right leg DVT in 2011 -not on chronic anticoagulation DVT Prophylaxis -Lovenox 40 mg sc daily
[2017-11-24] MEDS: Lactobacillus Acidophilus 500 MU Cap PO SCH ×2 (09:21→17:04)
[2017-11-24] MEDS: Enoxaparin 40 mg Syringe SC SCH (09:22)
[2017-11-25] MEDS: Piperacillin/Tazobact 3.375 GM in Sodium Chloride 0.9% 100 ML IVPB SCH ×4 (03:30→21:47)
--- NOTE | 2017-11-25 09:25 | CP.PCM.CON ---
History of Present Illness - History of Present Illness History of Present Illness: Infectious Disease Consultation Note- asked to see this patient at the request of family practice team for help with antibiotic management in bacteremia . HPI- Patient is a 42 year old female with pmh of LLE DVT who states she originally presented to Ed last week for c/o fever nad back pian and abd pian and she was told she has UTI and was given antibiotics and d/c and then she states she was not feeling better and continues o have back pain and fever and she was recalled to come back to the hospital bc her blood cx were positive. she denies ever having any dysurea and states her only symptom was lower back pain and abd. pain and fever. Patient explains she feels much better now. denies any fever or chill,s denies any nausea or vomiting, denies any more abd. pain, states her back/flank pian has almost completely resoved, denies any cough or sob, denies any chest pain PMD: [facility]. Last visit 06/2017 dr blunt PMHx: o LLE DVT in 2011 Allergies: NKDA Meds: aspirin 81 mg daily PSurghx: c section x 2 Review of Systems - Review of Systems Review of Systems: ROS- as stated in HPI. Past Patient History - Past Medical History & Family History Past Medical History?: Yes - Past Social History Smoking Status: Never Smoked Alcohol: None Drugs: Denies Home Situation {Lives}: With Family - CARDIAC Hx Cardiac Disorders: No - PULMONARY Hx Respiratory Disorders: No - NEUROLOGICAL Hx Neurological Disorder: No - HEENT Hx HEENT Problems: No - RENAL Hx Chronic Kidney Disease: No - ENDOCRINE/METABOLIC Hx Endocrine Disorders: No - HEMATOLOGICAL/ONCOLOGICAL Hx Blood Disorders: Yes Other/Comment: DVT 2011 - INTEGUMENTARY Hx Dermatological Problems: No - MUSCULOSKELETAL/RHEUMATOLOGICAL Hx Musculoskeletal Disorders: No Hx Falls: No - GASTROINTESTINAL Hx Gastrointestinal Disorders: No - GENITOURINARY/GYNECOLOGICAL Hx Genitourinary Disorders: No - PSYCHIATRIC Hx Substance Use: No - SURGICAL HISTORY Hx Section: Yes (x2) - ANESTHESIA Hx Anesthesia: Yes Hx Anesthesia Reactions: No Hx Malignant Hyperthermia: No Meds Allergies/Adverse Reactions: Allergies Allergy/AdvReac Type Severity Reaction Status Date / Time No Known Allergies Allergy Verified 09/10/15 10:58 - Medications Medications: Current Medications Acetaminophen (Tylenol 325mg Tab) 650 mg PO Q6 PRN PRN Reason: Pain, Mild (1-3) Last Admin: 11/23/17 08:51 Dose: 650 mg Acetaminophen (Tylenol 325mg Tab) 650 mg PO Q6 PRN PRN Reason: Fever >100.4 F Last Admin: 11/23/17 00:25 Dose: 650 mg Enoxaparin Sodium (Lovenox) 40 mg SC DAILY [facility] PRN Reason: Protocol Last Admin: 11/24/17 09:22 Dose: 40 mg Famotidine (Pepcid) 20 mg PO DAILY [facility] Last Admin: 11/24/17 09:22 Dose: 20 mg Piperacillin Sod/Tazobactam (Sod 3.375 gm/ Sodium Chloride) 100 mls @ 100 mls/ hr IVPB Q6 [facility] PRN Reason: Protocol Last Admin: 11/25/17 03:30 Dose: 100 mls/hr Ketorolac Tromethamine (Toradol) 15 mg IVP Q6 PRN PRN Reason: Pain, moderate (4-7) Last Admin: 11/24/17 02:51 Dose: 15 mg Lactobacillus Acidophilus (Bacid Acidophilus) 1 cap PO BID [facility] Last Admin: 11/24/17 17:04 Dose: 1 cap Morphine Sulfate (Morphine) 2 mg IVP Q6 PRN PRN Reason: Pain, severe (8-10) Ondansetron HCl (Zofran Odt) 4 mg PO Q8H PRN PRN Reason: Nausea/Vomiting Physical Exam - Constitutional Appears: No Acute Distress - Head Exam Head Exam: ATRAUMATIC - Eye Exam Eye Exam: EOMI, PERRL - ENT Exam ENT Exam: Normal Oropharynx - Neck Exam Neck exam: Positive for: Full Rom - Respiratory Exam Respiratory Exam: Clear to Auscultation Bilateral, NORMAL BREATHING PATTERN - Cardiovascular Exam Cardiovascular Exam: RRR, +S1, +S2 - GI/Abdominal Exam GI & Abdominal Exam: Normal Bowel Sounds, Soft Additional comments: NT, ND minimal right CVA tenderness no left CVA tenderness - Extremities Exam Extremities exam: Positive for: normal inspection - Neurological Exam Neurological exam: Alert, Oriented x3 Results - Vital Signs Recent Vital Signs: Last Vital Signs Temp 97.8 F 11/25/17 08:00 Pulse 53 L 11/25/17 08:00 Resp 20 11/25/17 08:00 BP 135/71 11/25/17 08:00 Pulse Ox 98 11/25/17 08:00 - Labs Result Diagrams: 11/24/17 04:55 11/23/17 06:15 Labs: Laboratory Results - last 72 hr 11/23/17 11/23/17 11/24/17 06:15 06:15 04:55 WBC 5.9 5.4 RBC 4.19 4.26 Hgb 11.4 L 11.5 L Hct 34.0 34.7 MCV 81.3 81.3 MCH 27.1 27.1 MCHC 33.4 33.3 RDW 13.7 13.8 Plt Count 216 249 MPV 8.8 8.7 Neut % (Auto) 54.9 38.8 L Lymph % (Auto) 31.4 41.7 H [place] % (Auto) 11.1 H 13.8 H Eos % (Auto) 2.0 5.1 H Baso % (Auto) 0.6 0.6 Neut # (Auto) 3.3 2.1 Lymph # (Auto) 1.9 2.2 [place] # (Auto) 0.7 0.7 Eos # (Auto) 0.1 0.3 Baso # (Auto) 0.0 0.0 Sodium 138 Potassium 3.8 Chloride 107 Carbon Dioxide 25 Anion Gap 10 BUN 3 L Creatinine 0.7 Est GFR ( Amer) > 60 Est GFR (Non-Af Amer) > 60 Random Glucose 94 Calcium 8.6 Total Bilirubin 0.2 AST 28 ALT 31 Alkaline Phosphatase 74 Total Protein 6.8 Albumin 3.1 L Globulin 3.7 Albumin/Globulin Ratio 0.8 L Microbiology 11/20/17 19:00 Blood-Venous Blood Culture - Preliminary NO GROWTH AFTER 4 DAYS 11/20/17 19:45 Blood-Venous Blood Culture - Preliminary NO GROWTH AFTER 4 DAYS 11/23/17 06:15 Blood Blood Culture - Preliminary NO GROWTH AFTER 48 HOURS 11/23/17 07:00 Urine Urine Culture - Final No Growth (<1,000 CFU/ML) 11/20/17 19:40 Urine,Clean Catch Urine Culture - Final No Growth (<1,000 CFU/ML) Assessment & Plan (1) Pyelonephritis Status: Acute (2) Bacteremia Status: Acute - Assessment and Plan (Free Text) Assessment: A/P- 42 year old female admitted with pyelonephritis and recalled for e.coli bacteremia. pt. clinically much improved. remains afebrile normal wbc count blood cx 11/19/2017- e.coli -pansensitive Urine cx- e.coli TTE- no vegetations as per report. repeat blood cx- neg x 3 repeat urine cx- neg plan- has been on iv zoysn to treat the e.coli UTI/pyelonephritis and e.coli bactermia for past 5 days. advise to switch the antibiotic to IV ceftriaoxne since its once a day and good SENG to this. advise total of 14 days of IV abx for the e.coli bacteremia.( hence 9 more days ). all above d/w patient and she verbalizes full understanding of all above and agrees with above plan of care. Thank you for allowing me to take part in the care of this patient.
--- NOTE | 2017-11-25 09:52 | CP.PCM.PN ---
Subjective - Date & Time of Evaluation Date of Evaluation: 11/25/17 Time of Evaluation: 08:30 - Subjective Subjective: No acute overnight events. Pt seen and examined by bedside this AM. States that she no longer has the flank pain, urinating without any pain or discomfort. Denies fever and chills overnight. Objective - Vital Signs/Intake and Output Vital Signs (last 24 hours): Temp Pulse Resp BP Pulse Ox 97.8 F 53 L 20 135/71 98 11/25/17 08:00 11/25/17 08:00 11/25/17 08:00 11/25/17 08:00 11/25/17 08:00 - Medications Medications: Current Medications Acetaminophen (Tylenol 325mg Tab) 650 mg PO Q6 PRN PRN Reason: Pain, Mild (1-3) Last Admin: 11/23/17 08:51 Dose: 650 mg Acetaminophen (Tylenol 325mg Tab) 650 mg PO Q6 PRN PRN Reason: Fever >100.4 F Last Admin: 11/23/17 00:25 Dose: 650 mg Enoxaparin Sodium (Lovenox) 40 mg SC DAILY [facility] PRN Reason: Protocol Last Admin: 11/24/17 09:22 Dose: 40 mg Famotidine (Pepcid) 20 mg PO DAILY [facility] Last Admin: 11/24/17 09:22 Dose: 20 mg Piperacillin Sod/Tazobactam (Sod 3.375 gm/ Sodium Chloride) 100 mls @ 100 mls/ hr IVPB Q6 [facility] PRN Reason: Protocol Last Admin: 11/25/17 03:30 Dose: 100 mls/hr Ketorolac Tromethamine (Toradol) 15 mg IVP Q6 PRN PRN Reason: Pain, moderate (4-7) Last Admin: 11/24/17 02:51 Dose: 15 mg Lactobacillus Acidophilus (Bacid Acidophilus) 1 cap PO BID [facility] Last Admin: 11/24/17 17:04 Dose: 1 cap Morphine Sulfate (Morphine) 2 mg IVP Q6 PRN PRN Reason: Pain, severe (8-10) Ondansetron HCl (Zofran Odt) 4 mg PO Q8H PRN PRN Reason: Nausea/Vomiting - Labs Labs: 11/24/17 04:55 11/23/17 06:15 - Constitutional Appears: No Acute Distress - Head Exam Head Exam: NORMAL INSPECTION - Eye Exam Eye Exam: Normal appearance - ENT Exam ENT Exam: Mucous Membranes Moist - Respiratory Exam Respiratory Exam: Clear to Ausculation Bilateral, NORMAL BREATHING PATTERN. absent: Wheezes - Cardiovascular Exam Cardiovascular Exam: REGULAR RHYTHM, +S1, +S2 - GI/Abdominal Exam GI & Abdominal Exam: Soft, Normal Bowel Sounds. absent: Tenderness - Extremities Exam Extremities Exam: Normal Inspection. absent: Calf Tenderness, Pedal Edema - Back Exam Back Exam: NORMAL INSPECTION - Neurological Exam Neurological Exam: Alert, Awake - Psychiatric Exam Psychiatric exam: Normal Mood - Skin Skin Exam: Normal Color Assessment and Plan - Assessment and Plan (Free Text) Assessment: Assessment/Plan: 42 YO Female with PMhx of LLE DVT admitted for pyleonephrytis, sepsis and bacteremia. Bacteremia, on IV abx D6 Sepsis, Bacteremia with +UTI -likely urosepsis, resolved -CT 11/21/27: suggestive bilateral pyelonephritis (R>L) -bcx pos x 2 and ucx pos on 11/19 for gram neg rods (sensitivities noted) -bcx neg x 2 11/20; bcx 11/23 no growth x 48 hrs -s/p Levaquin in ED x2 -c/w Zosyn (D5) today; Total abx D6 -echo 11/23: no valvular vegetations noted, EF 65% -ID consulted; pending recs Hx/o DVT -right leg DVT in 2011 -not on chronic anticoagulation DVT Prophylaxis -Lovenox 40 mg sc daily
[2017-11-25] MEDS: Enoxaparin 40 mg Syringe SC SCH (10:00)
[2017-11-25] MEDS: Lactobacillus Acidophilus 500 MU Cap PO SCH ×2 (10:07→17:34)
[2017-11-26] MEDS: cefTRIAXone 2 GM in Sodium Chloride 0.9% 100 ML IVPB SCH (08:43)
[2017-11-26] MEDS: Lactobacillus Acidophilus 500 MU Cap PO SCH ×2 (08:43→17:16)
[2017-11-26] MEDS: Enoxaparin 40 mg Syringe SC SCH (08:44)
--- NOTE | 2017-11-26 10:40 | CP.PCM.PN ---
<Melida Ellington - Last Filed: 11/26/17 14:26> Subjective - Date & Time of Evaluation Date of Evaluation: 11/26/17 Time of Evaluation: 10:39 - Subjective Subjective: No acute overnight events. Pt states that she is feeling well, low appetite but flank pain has resolved at this time. Denies dysuria, hematuria, n/v, ambulatory and remains without fever. Objective - Vital Signs/Intake and Output Vital Signs (last 24 hours): Temp Pulse Resp BP Pulse Ox 97.5 F L 54 L 19 106/61 100 11/26/17 07:48 11/26/17 07:48 11/26/17 07:48 11/26/17 07:48 11/26/17 07:48 - Medications Medications: Current Medications Acetaminophen (Tylenol 325mg Tab) 650 mg PO Q6 PRN PRN Reason: Pain, Mild (1-3) Last Admin: 11/23/17 08:51 Dose: 650 mg Acetaminophen (Tylenol 325mg Tab) 650 mg PO Q6 PRN PRN Reason: Fever >100.4 F Last Admin: 11/23/17 00:25 Dose: 650 mg Enoxaparin Sodium (Lovenox) 40 mg SC DAILY DEANDRE PRN Reason: Protocol Last Admin: 11/26/17 08:44 Dose: 40 mg Famotidine (Pepcid) 20 mg PO DAILY [facility] Last Admin: 11/26/17 08:44 Dose: 20 mg Ceftriaxone Sodium 2 gm/ (Sodium Chloride) 100 mls @ 100 mls/hr IVPB DAILY DEANDRE PRN Reason: Protocol Last Admin: 11/26/17 08:43 Dose: 100 mls/hr Ketorolac Tromethamine (Toradol) 15 mg IVP Q6 PRN PRN Reason: Pain, moderate (4-7) Lactobacillus Acidophilus (Bacid Acidophilus) 1 cap PO BID [facility] Last Admin: 11/26/17 08:43 Dose: 1 cap Morphine Sulfate (Morphine) 2 mg IVP Q6 PRN PRN Reason: Pain, severe (8-10) Ondansetron HCl (Zofran Odt) 4 mg PO Q8H PRN PRN Reason: Nausea/Vomiting - Labs Labs: 11/24/17 04:55 11/23/17 06:15 - Constitutional Appears: No Acute Distress - ENT Exam ENT Exam: Mucous Membranes Moist - Respiratory Exam Respiratory Exam: Clear to Ausculation Bilateral, NORMAL BREATHING PATTERN. absent: Wheezes - Cardiovascular Exam Cardiovascular Exam: REGULAR RHYTHM, +S1, +S2. absent: Murmur - GI/Abdominal Exam GI & Abdominal Exam: Soft, Normal Bowel Sounds. absent: Tenderness - Extremities Exam Extremities Exam: Normal Inspection. absent: Calf Tenderness, Pedal Edema - Back Exam Back Exam: NORMAL INSPECTION. absent: CVA tenderness (L), CVA tenderness (R) - Neurological Exam Neurological Exam: Alert, Awake Assessment and Plan - Assessment and Plan (Free Text) Assessment: Assessment/Plan: 42 YO Female with PMhx of LLE DVT admitted for pyleonephrytis, sepsis and bacteremia. Bacteremia, on IV abx D6 Sepsis, Bacteremia with +UTI -likely urosepsis, resolved -CT 11/21/27: suggestive bilateral pyelonephritis (R>L) -bcx pos x 2 and ucx pos on 11/19 for gram neg rods (sensitivities noted) -bcx neg x 2 11/20; bcx 11/23 no growth x 48 hrs -s/p Levaquin in ED x2 -d/c Zosyn (D5) -Per ID; pt started to ceftriaxone D1; will need total of 14 days IV abx, D6/ -echo 11/23: no valvular vegetations noted, EF 65% Hx/o DVT -right leg DVT in 2011 -not on chronic anticoagulation DVT Prophylaxis -Lovenox 40 mg sc daily <Gabby Marks - Last Filed: 11/26/17 17:33> Objective - Vital Signs/Intake and Output Vital Signs (last 24 hours): Temp Pulse Resp BP Pulse Ox 98.2 F 65 18 113/74 97 11/26/17 16:40 11/26/17 16:40 11/26/17 16:40 11/26/17 16:40 11/26/17 16:40 - Medications Medications: Current Medications Acetaminophen (Tylenol 325mg Tab) 650 mg PO Q6 PRN PRN Reason: Pain, Mild (1-3) Last Admin: 11/23/17 08:51 Dose: 650 mg Acetaminophen (Tylenol 325mg Tab) 650 mg PO Q6 PRN PRN Reason: Fever >100.4 F Last Admin: 11/23/17 00:25 Dose: 650 mg Famotidine (Pepcid) 20 mg PO DAILY [facility] Last Admin: 11/26/17 08:44 Dose: 20 mg Ceftriaxone Sodium 2 gm/ (Sodium Chloride) 100 mls @ 100 mls/hr IVPB DAILY DEANDRE PRN Reason: Protocol Last Admin: 11/26/17 08:43 Dose: 100 mls/hr Ketorolac Tromethamine (Toradol) 15 mg IVP Q6 PRN PRN Reason: Pain, moderate (4-7) Lactobacillus Acidophilus (Bacid Acidophilus) 1 cap PO BID [facility] Last Admin: 11/26/17 17:16 Dose: 1 cap Morphine Sulfate (Morphine) 2 mg IVP Q6 PRN PRN Reason: Pain, severe (8-10) Ondansetron HCl (Zofran Odt) 4 mg PO Q8H PRN PRN Reason: Nausea/Vomiting - Labs Labs: 11/24/17 04:55 11/23/17 06:15 Attending/Attestation - Attestation I have personally seen and examined this patient.: Yes I have fully participated in the care of the patient.: Yes I have reviewed all pertinent clinical information, including history, physical exam and plan: Yes Notes (Text): 11/26/17 17:33 Seen, examined, and discussed with residents Dr. Ellington. Agree with findings and plan as above.
[2017-11-27] MEDS: Lactobacillus Acidophilus 500 MU Cap PO SCH (08:24)
[2017-11-27] MEDS: cefTRIAXone 2 GM in Sodium Chloride 0.9% 100 ML IVPB SCH (08:25)
[2017-11-27 09:08] LABS: HEMOGLOBIN 13.1 g/dL (12.0-16.0); MEAN CELL VOLUME 82.1 fl (81.0-99.0); MEAN CORPUSCULAR HGB CONC 32.9 g/dL (33.0-37.0); RBC 4.87 Mil/uL (3.80-5.20); RED CELL DISTRIBUTION WIDTH 14.2 % (11.5-14.5); WHITE BLOOD COUNT 6.9 K/uL (4.8-10.8)
[2017-11-27 09:15] LABS: BLOOD UREA NITROGEN 18 mg/dl (7-17); CALCIUM 9.5 mg/dL (8.4-10.2); GFR NON-AFRICAN AMERICAN > 60
--- NOTE | 2017-11-27 10:30 | CP.PCM.PN ---
Subjective - Date & Time of Evaluation Date of Evaluation: 11/27/17 Time of Evaluation: 10:30 - Subjective Subjective: ID note- Pt. seen and examined today. denies any fever or chills, denies any dysurea, denies any more back pain. Objective - Vital Signs/Intake and Output Vital Signs (last 24 hours): Temp Pulse Resp BP Pulse Ox 97.7 F 62 19 99/61 L 97 11/27/17 07:46 11/27/17 07:46 11/27/17 07:46 11/27/17 07:46 11/27/17 07:46 - Medications Medications: Current Medications Acetaminophen (Tylenol 325mg Tab) 650 mg PO Q6 PRN PRN Reason: Pain, Mild (1-3) Last Admin: 11/23/17 08:51 Dose: 650 mg Acetaminophen (Tylenol 325mg Tab) 650 mg PO Q6 PRN PRN Reason: Fever >100.4 F Last Admin: 11/23/17 00:25 Dose: 650 mg Famotidine (Pepcid) 20 mg PO DAILY [facility] Last Admin: 11/27/17 08:25 Dose: 20 mg Ceftriaxone Sodium 2 gm/ (Sodium Chloride) 100 mls @ 100 mls/hr IVPB DAILY [facility] PRN Reason: Protocol Last Admin: 11/27/17 08:25 Dose: 100 mls/hr Ketorolac Tromethamine (Toradol) 15 mg IVP Q6 PRN PRN Reason: Pain, moderate (4-7) Last Admin: 11/26/17 21:20 Dose: 15 mg Lactobacillus Acidophilus (Bacid Acidophilus) 1 cap PO BID [facility] Last Admin: 11/27/17 08:24 Dose: 1 cap Morphine Sulfate (Morphine) 2 mg IVP Q6 PRN PRN Reason: Pain, severe (8-10) Ondansetron HCl (Zofran Odt) 4 mg PO Q8H PRN PRN Reason: Nausea/Vomiting - Labs Labs: - Additional Findings Additional findings: - Constitutional Appears: No Acute Distress - Head Exam Head Exam: ATRAUMATIC - Eye Exam Eye Exam: EOMI, PERRL - ENT Exam ENT Exam: Normal Oropharynx - Neck Exam Neck exam: Positive for: Full Rom - Respiratory Exam Respiratory Exam: Clear to Auscultation Bilateral, NORMAL BREATHING PATTERN - Cardiovascular Exam Cardiovascular Exam: RRR, +S1, +S2 - GI/Abdominal Exam GI & Abdominal Exam: Normal Bowel Sounds, Soft Additional comments: NT, ND no CVA tenderness b/l - Extremities Exam Extremities exam: Positive for: normal inspection - Neurological Exam Neurological exam: Alert, Oriented x 3 Laboratory Results - last 72 hr 11/27/17 11/27/17 08:30 08:30 WBC 6.9 RBC 4.87 Hgb 13.1 Hct 40.0 MCV 82.1 MCH 27.0 MCHC 32.9 L RDW 14.2 Plt Count 336 Sodium 140 Potassium 4.5 Chloride 104 Carbon Dioxide 28 Anion Gap 13 BUN 18 H Creatinine 0.7 Est GFR ( Amer) > 60 Est GFR (Non-Af Amer) > 60 Random Glucose 91 Calcium 9.5 Microbiology 11/23/17 06:15 Blood Blood Culture - Preliminary NO GROWTH AFTER 4 DAYS 11/20/17 19:00 Blood-Venous Blood Culture - Final NO GROWTH AFTER 5 DAYS 11/20/17 19:00 Blood-Venous Gram Stain - Final TEST NOT PERFORMED 11/20/17 19:45 Blood-Venous Blood Culture - Final NO GROWTH AFTER 5 DAYS 11/20/17 19:45 Blood-Venous Gram Stain - Final TEST NOT PERFORMED 11/23/17 07:00 Urine Urine Culture - Final No Growth (<1,000 CFU/ML) 11/20/17 19:40 Urine,Clean Catch Urine Culture - Final No Growth (<1,000 CFU/ML) Assessment and Plan (1) Pyelonephritis Status: Acute (2) Bacteremia Status: Acute - Assessment and Plan (Free Text) Assessment: A/P- 42 year old female admitted with pyelonephritis and recalled for e.coli bacteremia. pt. clinically much improved. remains afebrile normal wbc count blood cx 11/19/2017- e.coli -pansensitive Urine cx- e.coli TTE- no vegetations as per report. repeat blood cx- neg x 3 repeat urine cx- neg plan- had been on iv zoysn to treat the e.coli UTI/pyelonephritis and e.coli bactermia for 5 days. I switched her to IV ceftriaoxne since its once a day and good SENG to this.3 days ago . advise total of 14 days of IV abx for the e.coli bacteremia.( hence 6 more days ). pt. to have repeat blood cx after the completion of her IV abx as outpatient. Pt. to be f/u by her PCP in 1 week. all above d/w patient and she verbalizes full understanding of all above and agrees with above plan of care. All above d/w as well.
--- NOTE | 2017-11-27 10:37 | CP.PCM.DIS ---
<Melida Ellington - Last Filed: 11/27/17 13:25> Provider - Provider Date of Admission: 11/20/17 20:12 Attending physician: Ursula Mcgregor MD Time Spent in preparation of Discharge (in minutes): 35 Diagnosis - Discharge Diagnosis (1) Bacteremia Status: Acute (2) Pyelonephritis Status: Acute (3) Sepsis Status: Acute Hospital Course - Lab Results Lab Results: Micro Results 11/23/17 06:15 Blood Blood Culture - Preliminary NO GROWTH AFTER 4 DAYS 11/20/17 19:00 Blood-Venous Blood Culture - Final NO GROWTH AFTER 5 DAYS 11/20/17 19:00 Blood-Venous Gram Stain - Final TEST NOT PERFORMED 11/20/17 19:45 Blood-Venous Blood Culture - Final NO GROWTH AFTER 5 DAYS 11/20/17 19:45 Blood-Venous Gram Stain - Final TEST NOT PERFORMED 11/23/17 07:00 Urine Urine Culture - Final No Growth (<1,000 CFU/ML) 11/20/17 19:40 Urine,Clean Catch Urine Culture - Final No Growth (<1,000 CFU/ML) Most Recent Lab Values WBC 6.9 K/uL (4.8-10.8) 11/27/17 08:30 RBC 4.87 Mil/uL (3.80-5.20) 11/27/17 08:30 Hgb 13.1 g/dL (12.0-16.0) 11/27/17 08:30 Hct 40.0 % (34.0-47.0) 11/27/17 08:30 MCV 82.1 fl (81.0-99.0) 11/27/17 08:30 MCH 27.0 pg (27.0-31.0) 11/27/17 08:30 MCHC 32.9 g/dL (33.0-37.0) L 11/27/17 08:30 RDW 14.2 % (11.5-14.5) 11/27/17 08:30 Plt Count 336 K/uL (130-400) 11/27/17 08:30 MPV 8.7 fl (7.2-11.7) 11/24/17 04:55 Neut % (Auto) 38.8 % (50.0-75.0) L 11/24/17 04:55 Lymph % (Auto) 41.7 % (20.0-40.0) H 11/24/17 04:55 Crosby % (Auto) 13.8 % (0.0-10.0) H 11/24/17 04:55 Eos % (Auto) 5.1 % (0.0-4.0) H 11/24/17 04:55 Baso % (Auto) 0.6 % (0.0-2.0) 11/24/17 04:55 Neut # (Auto) 2.1 K/uL (1.8-7.0) 11/24/17 04:55 Lymph # (Auto) 2.2 K/uL (1.0-4.3) 11/24/17 04:55 Crosby # (Auto) 0.7 K/uL (0.0-0.8) 11/24/17 04:55 Eos # (Auto) 0.3 K/uL (0.0-0.7) 11/24/17 04:55 Baso # (Auto) 0.0 K/uL (0.0-0.2) 11/24/17 04:55 pO2 29 mm/Hg (30-55) L 11/20/17 19:42 VBG pH 7.39 (7.32-7.43) 11/20/17 19:42 VBG pCO2 44 mmHg (40-60) 11/20/17 19:42 VBG HCO3 24.7 mmol/L 11/20/17 19:42 VBG Total CO2 28.0 mmol/L (22-28) 11/20/17 19:42 VBG O2 Sat (Calc) 40.5 % (40-65) 11/20/17 19:42 VBG Base Excess 1.2 mmol/L (0.0-2.0) 11/20/17 19:42 VBG Potassium 3.1 mmol/L (3.6-5.2) L 11/20/17 19:42 Sodium 137.0 mmol/L (132-148) 11/20/17 19:42 Chloride 104.0 mmol/L (98-107) 11/20/17 19:42 Glucose 101 mg/dL (65-105) 11/20/17 19:42 Lactate 1.2 mmol/L (0.7-2.1) 11/20/17 19:42 FiO2 21.0 % 11/20/17 19:42 Sodium 140 mmol/l (132-148) 11/27/17 08:30 Potassium 4.5 MMOL/L (3.6-5.0) 11/27/17 08:30 Chloride 104 mmol/L (98-107) 11/27/17 08:30 Carbon Dioxide 28 mmol/L (22-30) 11/27/17 08:30 Anion Gap 13 (10-20) 11/27/17 08:30 BUN 18 mg/dl (7-17) H 11/27/17 08:30 Creatinine 0.7 mg/dl (0.7-1.2) 11/27/17 08:30 Est GFR ( Amer) > 60 11/27/17 08:30 Est GFR (Non-Af Amer) > 60 11/27/17 08:30 Random Glucose 91 mg/dL (65-105) 11/27/17 08:30 Calcium 9.5 mg/dL (8.4-10.2) 11/27/17 08:30 Total Bilirubin 0.2 mg/dl (0.2-1.3) 11/23/17 06:15 AST 28 U/L (14-36) 11/23/17 06:15 ALT 31 U/L (9-52) 11/23/17 06:15 Alkaline Phosphatase 74 U/L (38-126) 11/23/17 06:15 Total Protein 6.8 G/DL (6.3-8.2) 11/23/17 06:15 Albumin 3.1 g/dL (3.5-5.0) L 11/23/17 06:15 Globulin 3.7 gm/dL (2.2-3.9) 11/23/17 06:15 Albumin/Globulin Ratio 0.8 (1.0-2.1) L 11/23/17 06:15 Venous Blood Potassium 3.1 mmol/L (3.6-5.2) L 11/20/17 19:42 Urine Color Yellow (YELLOW) 11/20/17 19:40 Urine Clarity Clear (Clear) 11/20/17 19:40 Urine pH 7.0 (5.0-8.0) 11/20/17 19:40 Ur Specific Flinton 1.009 (1.003-1.030) 11/20/17 19:40 Urine Protein 30 mg/dL (NEGATIVE) 11/20/17 19:40 Urine Glucose (UA) Neg mg/dL (Normal) 11/20/17 19:40 Urine Ketones Negative mg/dL (NEGATIVE) 11/20/17 19:40 Urine Blood Small (NEGATIVE) 11/20/17 19:40 Urine Nitrate Negative (NEGATIVE) 11/20/17 19:40 Urine Bilirubin Negative (NEGATIVE) 11/20/17 19:40 Urine Urobilinogen 0.2-1.0 mg/dL (0.2-1.0) 11/20/17 19:40 Ur Leukocyte Esterase Trace Simone/uL (Negative) 11/20/17 19:40 Urine RBC (Auto) 5 /hpf (0-3) H 11/20/17 19:40 Urine Microscopic WBC 10 /hpf (0-5) H 11/20/17 19:40 Ur Squamous Epith Cells < 1 /hpf (0-5) 11/20/17 19:40 - Hospital Course Hospital Course: 42 YO Female with PMhx of LLE DVT admitted for pyleonephrytis, sepsis and bacteremia. Workup sig for blood culture x 2 pos and ucx x 1 pos (11/19), echo neg for any vegetations, repeat blood work neg. ID was consulted, pt to get 14 days of IV abx, currently on D7 will require 7 more days of IV abx. PICC line today, will d/c pt home with daily IV abx and follow up with MD within 1 week. Discharge Exam - Head Exam Head Exam: ATRAUMATIC - Eye Exam Eye Exam: Normal appearance - Respiratory Exam Respiratory Exam: Clear to PA & Lateral, NORMAL BREATHING PATTERN. absent: Wheezes - Cardiovascular Exam Cardiovascular Exam: REGULAR RHYTHM, +S1, +S2 - GI/Abdominal Exam GI & Abdominal Exam: Normal Bowel Sounds, Soft. absent: Distended, Guarding, Tenderness - Extremities Exam Extremities exam: normal inspection - Back Exam Back exam: NORMAL INSPECTION. absent: CVA tenderness (L), CVA tenderness (R) - Neurological Exam Neurological exam: Alert - Psychiatric Exam Psychiatric exam: Normal Mood - Skin Skin Exam: Normal Color Discharge Plan - Discharge Medications Prescriptions: Ceftriaxone Sodium [Ceftriaxone] 2 gm IV DAILY #7 - Follow Up Plan Condition: FAIR Disposition: HOME/ ROUTINE Patient education suggested?: Yes Instructions: Urinary Tract Infection, Adult (DC), Peripherally-Inserted Central Catheter (DC), Sepsis (DC) Additional Instructions: follow up with primary MD 1 week Referrals: [facility] [Outside] Elizabeth Hazel MD [Staff Provider] - <Gabby Marks - Last Filed: 11/27/17 18:17> Provider - Provider Date of Admission: 11/20/17 20:12 Attending physician: Ursula Mcgregor MD Hospital Course - Lab Results Lab Results: Micro Results 11/23/17 06:15 Blood Blood Culture - Preliminary NO GROWTH AFTER 4 DAYS 11/20/17 19:00 Blood-Venous Blood Culture - Final NO GROWTH AFTER 5 DAYS 11/20/17 19:00 Blood-Venous Gram Stain - Final TEST NOT PERFORMED 11/20/17 19:45 Blood-Venous Blood Culture - Final NO GROWTH AFTER 5 DAYS 11/20/17 19:45 Blood-Venous Gram Stain - Final TEST NOT PERFORMED 11/23/17 07:00 Urine Urine Culture - Final No Growth (<1,000 CFU/ML) 11/20/17 19:40 Urine,Clean Catch Urine Culture - Final No Growth (<1,000 CFU/ML) Most Recent Lab Values WBC 6.9 K/uL (4.8-10.8) 11/27/17 08:30 RBC 4.87 Mil/uL (3.80-5.20) 11/27/17 08:30 Hgb 13.1 g/dL (12.0-16.0) 11/27/17 08:30 Hct 40.0 % (34.0-47.0) 11/27/17 08:30 MCV 82.1 fl (81.0-99.0) 11/27/17 08:30 MCH 27.0 pg (27.0-31.0) 11/27/17 08:30 MCHC 32.9 g/dL (33.0-37.0) L 11/27/17 08:30 RDW 14.2 % (11.5-14.5) 11/27/17 08:30 Plt Count 336 K/uL (130-400) 11/27/17 08:30 MPV 8.7 fl (7.2-11.7) 11/24/17 04:55 Neut % (Auto) 38.8 % (50.0-75.0) L 11/24/17 04:55 Lymph % (Auto) 41.7 % (20.0-40.0) H 11/24/17 04:55 Crosby % (Auto) 13.8 % (0.0-10.0) H 11/24/17 04:55 Eos % (Auto) 5.1 % (0.0-4.0) H 11/24/17 04:55 Baso % (Auto) 0.6 % (0.0-2.0) 11/24/17 04:55 Neut # (Auto) 2.1 K/uL (1.8-7.0) 11/24/17 04:55 Lymph # (Auto) 2.2 K/uL (1.0-4.3) 11/24/17 04:55 Crosby # (Auto) 0.7 K/uL (0.0-0.8) 11/24/17 04:55 Eos # (Auto) 0.3 K/uL (0.0-0.7) 11/24/17 04:55 Baso # (Auto) 0.0 K/uL (0.0-0.2) 11/24/17 04:55 pO2 29 mm/Hg (30-55) L 11/20/17 19:42 VBG pH 7.39 (7.32-7.43) 11/20/17 19:42 VBG pCO2 44 mmHg (40-60) 11/20/17 19:42 VBG HCO3 24.7 mmol/L 11/20/17 19:42 VBG Total CO2 28.0 mmol/L (22-28) 11/20/17 19:42 VBG O2 Sat (Calc) 40.5 % (40-65) 11/20/17 19:42 VBG Base Excess 1.2 mmol/L (0.0-2.0) 11/20/17 19:42 VBG Potassium 3.1 mmol/L (3.6-5.2) L 11/20/17 19:42 Sodium 137.0 mmol/L (132-148) 11/20/17 19:42 Chloride 104.0 mmol/L (98-107) 11/20/17 19:42 Glucose 101 mg/dL (65-105) 11/20/17 19:42 Lactate 1.2 mmol/L (0.7-2.1) 11/20/17 19:42 FiO2 21.0 % 11/20/17 19:42 Sodium 140 mmol/l (132-148) 11/27/17 08:30 Potassium 4.5 MMOL/L (3.6-5.0) 11/27/17 08:30 Chloride 104 mmol/L (98-107) 11/27/17 08:30 Carbon Dioxide 28 mmol/L (22-30) 11/27/17 08:30 Anion Gap 13 (10-20) 11/27/17 08:30 BUN 18 mg/dl (7-17) H 11/27/17 08:30 Creatinine 0.7 mg/dl (0.7-1.2) 11/27/17 08:30 Est GFR ( Amer) > 60 11/27/17 08:30 Est GFR (Non-Af Amer) > 60 11/27/17 08:30 Random Glucose 91 mg/dL (65-105) 11/27/17 08:30 Calcium 9.5 mg/dL (8.4-10.2) 11/27/17 08:30 Total Bilirubin 0.2 mg/dl (0.2-1.3) 11/23/17 06:15 AST 28 U/L (14-36) 11/23/17 06:15 ALT 31 U/L (9-52) 11/23/17 06:15 Alkaline Phosphatase 74 U/L (38-126) 11/23/17 06:15 Total Protein 6.8 G/DL (6.3-8.2) 11/23/17 06:15 Albumin 3.1 g/dL (3.5-5.0) L 11/23/17 06:15 Globulin 3.7 gm/dL (2.2-3.9) 11/23/17 06:15 Albumin/Globulin Ratio 0.8 (1.0-2.1) L 11/23/17 06:15 Venous Blood Potassium 3.1 mmol/L (3.6-5.2) L 11/20/17 19:42 Urine Color Yellow (YELLOW) 11/20/17 19:40 Urine Clarity Clear (Clear) 08/24/18 19:40 Urine pH 7.0 (5.0-8.0) 11/20/17 19:40 Ur Specific Flinton 1.009 (1.003-1.030) 11/20/17 19:40 Urine Protein 30 mg/dL (NEGATIVE) 11/20/17 19:40 Urine Glucose (UA) Neg mg/dL (Normal) 11/20/17 19:40 Urine Ketones Negative mg/dL (NEGATIVE) 11/20/17 19:40 Urine Blood Small (NEGATIVE) 11/20/17 19:40 Urine Nitrate Negative (NEGATIVE) 11/20/17 19:40 Urine Bilirubin Negative (NEGATIVE) 11/20/17 19:40 Urine Urobilinogen 0.2-1.0 mg/dL (0.2-1.0) 11/20/17 19:40 Ur Leukocyte Esterase Trace Simone/uL (Negative) 11/20/17 19:40 Urine RBC (Auto) 5 /hpf (0-3) H 11/20/17 19:40 Urine Microscopic WBC 10 /hpf (0-5) H 11/20/17 19:40 Ur Squamous Epith Cells < 1 /hpf (0-5) 11/20/17 19:40 Attending/Attestation - Attestation I have personally seen and examined this patient.: Yes I have fully participated in the care of the patient.: Yes I have reviewed all pertinent clinical information, including history, physical exam and plan: Yes Notes (Text): 11/27/17 18:17 Seen, examined, and discussed with residents Drs. Wei and Rakel. Agree with findings and plan as above.
[2017-11-27] MEDS ORDERED: Lidocaine 1% 5ml Abboject IV ONE (12:38)
--- NOTE | 2017-11-27 12:49 | PCM.SURG1 ---
Surgeon's Initial Post Op Note - Surgeon's Notes Surgeon: Gabriel Guthrie MD Tetryl Screen Operator: NONE Type of Anesthesia: Local Pre-Operative Diagnosis: Pyelonephritis Operative Findings: US showed patent right basilic vein Post-Operative Diagnosis: Pyelonephritis Operation Performed: Single lumen picc placement right arm. Specimen/Specimens Removed: NONE Estimated Blood Loss: EBL {In ML}: 2 Blood Products Given: N/A Drains Used: No Drains Post-Op Condition: Fair Date of Surgery/Procedure: 11/27/17 Time of Surgery/Procedure: 12:45
[2017-11-27 16:09] VITALS: BP 118/71; PULSE 60; RESP 20; TEMP 98.4; O2SAT 94
--- NOTE | 2017-11-29 15:36 | VASCULAR ---
PROCEDURE: Date of procedure: 11/27/2017 Procedure: 1. Placement of a right arm PICC with ultrasound and fluoroscopic guidance, CPT 89242 2. PICC tip confirmation with spot radiograph and is in the superior vena cava Medications: 1 percent lidocaine Total Fluoro time: 4.3 seconds Radiation: 0.55 MGy EBL: 2 cc HISTORY: Infection requiring long-term IV antibiotics TECHNIQUE: Following informed consent and procedure time-out, the patient was placed supine on the interventional table and the right arm prepped and draped in the usual sterile fashion. Ultrasound showed a patent and compressible right basilic vein. After the skin was anesthetized with lidocaine, the basilic vein was accessed with micro micropuncture technique using ultrasound guidance. A guidewire was then advanced under fluoroscopic guidance into the superior vena cava. An image documenting ultrasound guidance for vascular access was permanently saved. The length of the single-lumen 4 Swazi PICC was trimmed to 35 centimeters and advanced through a peel-away sheath. The PICC was position with tip of PICC confirm a spot radiograph the superior vena cava. The PICC was secured to the patient's skin. The PICC was flushed. A biopatch and sterile dressing was applied. IMPRESSION: Placement of a single-lumen 4 Swazi PICC trimmed to 35 centimeters via right basilic vein. The tip of the PICC is confirmed with spot radiograph and is in the superior vena cava.
== END 2017-11-27 17:05 | disposition home or self-care (01) | DRG 872 ==
LOC: H.ER 17:52 → H.ERHOLD 20:12 → OBSVTOIN 20:12 → H.TEL 22:19 → H.MEDSURG1 11-25 14:40
PROVIDERS: ADMIT Family Medicine Geriatric Medicine; ATTEND Family Medicine Geriatric Medicine
PROC: 02HV33Z Insertion of Infusion Device into Superior Vena Cava, Percutaneous Approach (ICD-10-PCS; principal; 2017-11-27)
DX: A41.51 Sepsis due to Escherichia coli [E. coli] (principal); N10 Acute pyelonephritis; B96.20 Unspecified Escherichia coli [E. coli] as the cause of diseases classified elsewhere; Z86.718 Personal history of other venous thrombosis and embolism

== ENCOUNTER 2018-03-22 16:40 | Emergency (ER) | payer OTHER, SELFPAY ==
[2018-03-22 16:40] VITALS: BMI 31.2
[2018-03-22 16:55] VITALS: BP 129/76; PULSE 84; RESP 18; TEMP 98.1; O2SAT 99
[2018-03-22] MEDS ORDERED: Sodium Chloride 0.9% 1,000 ML IV STA (17:32)
--- NOTE | 2018-03-22 18:26 | ED PDOC ---
HPI: Abdomen Time Seen by Provider: 03/22/18 17:10 Chief Complaint (Nursing): Female Genitourinary Chief Complaint (Provider): Abdominal Pain, Nausea History Per: Patient, Nurse Advisor (#[id number]) History/Exam Limitations: no limitations Onset/Duration Of Symptoms: Days (x1 week) Current Symptoms Are (Timing): Still Present Additional Complaint(s): 42 year old female presents to the ED for evaluation of suprapubic abdominal pain radiating to her right flank worsening over the past week. Today she notes she began to feel febrile, but did not take her temperature, and has been nauseous, but without vomiting. Patient states the pain is worse with urination, but denies hematuria. She reports that five months ago she was admitted for a kidney problem, but cannot remember what it was called, and says her current symptoms feel similar to that time. Denies ever following up for her kidney problem after being discharged. [facility] 02/10/2018 PMD: none provided Past Medical History Reviewed: Historical Data, Nursing Documentation, Vital Signs Vital Signs: Last Vital Signs Temp 98.1 F 03/22/18 16:53 Pulse 84 03/22/18 16:53 Resp 18 03/22/18 16:53 BP 129/76 03/22/18 16:53 Pulse Ox 99 03/22/18 16:53 - Medical History PMH: Deep Vein Thrombosis (Taking asparin) Denies: Chronic Kidney Disease Other PMH: kidney infection - Surgical History Surgical History: No Surg Hx - Family History Family History: States: Unknown Family Hx - Social History Current smoker - smoking cessation education provided: No Alcohol: None Drugs: Denies - Immunization History Hx Tetanus Toxoid Vaccination: No Hx Influenza Vaccination: No Hx Pneumococcal Vaccination: No - Home Medications Home Medications: Ambulatory Orders Medication Instructions Recorded Aspirin [Ecotrin] 81 mg PO DAILY 11/20/17 Ceftriaxone Sodium [Ceftriaxone] 2 gm IV DAILY #7 11/27/17 - Allergies Allergies/Adverse Reactions: Allergies Allergy/AdvReac Type Severity Reaction Status Date / Time No Known Allergies Allergy Verified 11/29/17 12:31 Review of Systems ROS Statement: Except As Marked, All Systems Reviewed And Found Negative Constitutional: Positive for: Fever (tactile) Gastrointestinal: Positive for: Nausea, Abdominal Pain (suprapubic radiating to right flank). Negative for: Vomiting Genitourinary Female: Negative for: Hematuria Physical Exam - Reviewed Nursing Documentation Reviewed: Yes Vital Signs Reviewed: Yes - Physical Exam Appears: Positive for: No Acute Distress Head Exam: Positive for: ATRAUMATIC, NORMOCEPHALIC Skin: Positive for: Normal Color, Warm Eye Exam: Positive for: Normal appearance Neck: Positive for: Normal, Painless ROM, Supple Cardiovascular/Chest: Positive for: Regular Rate, Rhythm Respiratory: Positive for: Normal Breath Sounds. Negative for: Respiratory Distress Gastrointestinal/Abdominal: Positive for: Normal Exam, Soft, Tenderness (suprapubic ) Back: Positive for: Normal Inspection, Other (right flank tenderness) - Laboratory Results Result Diagrams: 03/22/18 18:28 03/22/18 18:28 - ECG O2 Sat by Pulse Oximetry: 99 (RA) Pulse Ox Interpretation: Normal Medical Decision Making Medical Decision Making: Time: 1730 Initial Impression: suprapubic tenderness with radiation to right flank Initial Plan: --EKG --CMP --CBC with differential --Normal saline IV --Toradol 30mg IVP --Urinalysis --Reassess 1834 Labs show urine preg is positive. Will add on quant HCG and will get US uterine/pelvis to r/o ectopic . Patient continues to deny vaginal bleeding and discharge. Admits to having full term healthy pregnancies in the past. 1899 Patient stared on Keflex for UTI / pyelonephritis. Also workup for IUP based on incidental positive and abdominal pain. To be signed out to Dr. Ramirez. Scribe Attestation: Documented by Shannan Gamez, acting as a scribe for Viktoriya Weston MD. Provider Scribe Attestation: All medical record entries made by the Scribe were at my direction and personally dictated by me. I have reviewed the chart and agree that the record accurately reflects my personal performance of the history, physical exam, medical decision making, and the department course for this patient. I have also personally directed, reviewed, and agree with the discharge instructions and disposition. Disposition - Disposition Forms: [employer] (Guinean)
[2018-03-22 18:31] LABS: BASO % 0.4 % (0.0-2.0); EOS # 0.2 K/uL (0.0-0.7); EOS % 2.5 % (0.0-4.0); HEMOGLOBIN 13.5 g/dL (12.0-16.0); LYMPH # 2.7 K/uL (1.0-4.3); MEAN CELL VOLUME 83.4 fl (81.0-99.0); MEAN CORPUSCULAR HGB CONC 32.4 g/dL (33.0-37.0); MEAN PLATELET VOLUME 8.9 fl (7.2-11.7); MONO # 0.7 K/uL (0.0-0.8); MONO % 7.9 % (0.0-10.0); NEUT % 58.2 % (50.0-75.0); WHITE BLOOD COUNT 8.6 K/uL (4.8-10.8)
[2018-03-22 18:39] LABS: SQUAMOUS EPITHIAL 2 /hpf (0-5); URINE BACTERIA MANY (<OCC); URINE BILIRUBIN NEGATIVE (NEGATIVE); URINE BLOOD NEGATIVE (NEGATIVE); URINE CLARITY CLOUDY (Clear); URINE COLOR YELLOW (YELLOW); URINE GLUCOSE (UA) NEG (NEGATIVE); URINE LEUKOCYTE ESTERASE LARGE Leu/uL (Negative); URINE PROTEIN NEGATIVE (NEGATIVE); URINE UROBILINOGEN 0.2-1.0 mg/dL (0.2-1.0)
[2018-03-22 18:43] LABS: ALBUMIN 4.1 g/dL (3.5-5.0); ALT/SGPT 27 U/L (9-52); AST/SGOT 24 U/L (14-36); BLOOD UREA NITROGEN 9 mg/dl (7-17); CALCIUM 8.7 mg/dL (8.4-10.2); GFR NON-AFRICAN AMERICAN > 60
--- NOTE | 2018-03-22 19:28 | ED PDOC ---
- Laboratory Results Result Diagrams: 03/22/18 18:28 03/22/18 18:28 - ECG O2 Sat by Pulse Oximetry: 99 (RA) Medical Decision Making Medical Decision Makin Patient care endorsed from Dr. Weston pending IUP workup. 2043 US Findings Uterus Single intrauterine gestational sac. Gestational sac diameter measures 0.6 cm. Heart rate: Not identified. Uterus measures 9.8 x 5.8 x 5.8 cm. No mass. Cervix Long and closed measuring 4.4 cm. No cervical abnormality seen. Right Ovary Measures 3.9 x 2.1 x 3.1 cm. No mass. Normal flow. Cysts measuring 1.1 x 1 x 0.7 cm and 1.1 x 0.9 x 1 cm. Left Ovary Measures 2.6 x 1 x 1.9 cm. No mass. Normal flow. Free Fluid None. Other Findings None. Impression 1. Possible early IUP with small sac like structure within. 2. No yolk sac, pole or heart motion is identified. 2052 Findings discussed with patient and she is stable for discharged. stressed to pt need to follow up in 2 days for rpt hcg. also told to take vitamins. Informed to follow up with her seasonal greenery bundler as soon as possible. Scribe Attestation: Documented by Shannan Gamez, acting as a scribe for Medina Ramirez MD. Provider Scribe Attestation: All medical record entries made by the Scribe were at my direction and personally dictated by me. I have reviewed the chart and agree that the record accurately reflects my personal performance of the history, physical exam, medical decision making, and the department course for this patient. I have also personally directed, reviewed, and agree with the discharge instructions and disposition. Disposition Counseled Patient/Family Regarding: Studies Performed, Diagnosis, Need For Fo llowup - Clinical Impression Clinical Impression: Early stage of - POA Present On Arrival: None - Disposition Referrals: [facility] [Outside] [facility] [Outside] Disposition: Routine/Home Disposition Time: 22:35 Condition: IMPROVED Additional Instructions: FOLLOW UP WITH OBGYN DOCTOR IN 2 DAYS FOR REEVALUATION AND RECHECK OF HORMONE LEVEL YOU NEED TO TAKE ANTIBIOTIC FOR YOUR URINARY INFECTION TAKE VITAMINS RETURN TO THE ED WITH ANY WORSENING OR CONCERNING SYMPTOMS Prescriptions: Cephalexin [Keflex] 500 mg PO QID #40 capsule Instructions: - The First Month Forms: [employer] (Namibian), [employer] (Barbadian) Print Language: YEMENI
[2018-03-22] MEDS ORDERED: cefTRIAXone (Rocephin) 1 gm Inj ONE (21:30)
--- NOTE | 2018-03-23 15:11 | US ---
Date of service: 03/22/2018 PROCEDURE: OB Pelvic Ultrasound HISTORY: pos preg with abd pain 02/10/2018 COMPARISON: None available. FINDINGS: UTERUS: Gestational sac: Questionable intrauterine gestational sac. 6 mm diameter. Out of range for determination of age. Heart rate: None detected age (Ultrasound estimated): Out of range Reny-gestational hemorrhage: None. Date of delivery (Ultrasound estimated) : Out of range Uterus measures 9.8 x 5.8 x 5.8 cm. Normal in size and appearance. CERVIX: Measures 4.4 cm. Long and closed. No cervical abnormality seen. RIGHT OVARY: Measures 3.9 x 2.1 x 3.1 cm. No mass lesion. Normal flow. LEFT OVARY: Measures 2.6 x 1.0 x 1.9 cm. No solid mass. Normal flow. FREE FLUID: None. OTHER FINDINGS: None. IMPRESSION: Questionable small intrauterine gestational sac. Sac diameter out of range for determination of age. No cardiac activity detectable. Follow-up with transvaginal ultrasound and serial beta HCG. The preliminary findings for this examination were reported by [facility] at 8:44 p.m. on 03/22/2018. There is concurrence of this report with the preliminary findings.
--- NOTE | 2018-03-23 20:19 | CARD ---
APPROVED REPORT Date of service: 03/22/2018 EKG Measurement Heart [id number] <Conclusion> Normal sinus rhythm Moderate voltage criteria for LVH, may be normal variant Borderline ECG
== END 2018-03-22 22:52 | disposition home or self-care (01) ==
LOC: H.ER 16:40
DX: O23.41 Unspecified infection of urinary tract in pregnancy, first trimester (principal); Z86.718 Personal history of other venous thrombosis and embolism
CPT/HCPCS: 76817; 80053; 81003; 81025; 84702; 85025; 87040; 93005; 96360; 99284; J0696; J7030

== ENCOUNTER 2018-06-10 10:02 | Emergency (ER) | payer SELFPAY ==
[2018-06-10 10:02] VITALS: BMI 31.2
[2018-06-10 10:58] VITALS: O2SAT 100
--- NOTE | 2018-06-10 11:30 | ED PDOC ---
HPI: Abdomen Time Seen by Provider: 06/10/18 10:43 Chief Complaint (Nursing): Back Pain Chief Complaint (Provider): Lower abdominal pain History Per: Patient History/Exam Limitations: no limitations Onset/Duration Of Symptoms: Days Outside of [place] travel?: No Current Symptoms Are (Timing): Still Present Location Of Pain/Discomfort: Suprapubic Associated Symptoms: Urinary Symptoms. denies: Fever, Chills Additional History Per: Patient Additional Complaint(s): 42yo female, no past medical history, comes to ER reporting lower abdominal pain x 2 days, with associated dysuria and back pain. She also reprots a tactile fever, but denies any nausea, vomiting or diarrhea. Patient has another complaints of right upper leg pain x 1 week; states the pain is worse with walki ng. Patient states in the past, she was diagnosed with DVT and had to get heparin injections; patient denies any anticoagulant use recently. She reports a third complaint, stating she thinks she might be ; patient states she had a miscarriage in March and had a menstrual period in April, but has not had her period for May. She denies any vaginal bleeding at this time. No additional complaints. PMD: None Abnormal Vaginal Bleeding: No Past Medical History Reviewed: Historical Data, Nursing Documentation, Vital Signs Vital Signs: Last Vital Signs Temp 98 F 06/10/18 10:55 Pulse 75 06/10/18 10:55 Resp 16 06/10/18 10:55 BP 116/71 06/10/18 10:55 Pulse Ox 100 06/10/18 10:55 - Medical History PMH: No Chronic Diseases, Deep Vein Thrombosis (Taking asprin) Denies: Chronic Kidney Disease - Surgical History Surgical History: - Family History Family History: States: Unknown Family Hx - Immunization History Hx Tetanus Toxoid Vaccination: No Hx Influenza Vaccination: No Hx Pneumococcal Vaccination: No - Home Medications Home Medications: Ambulatory Orders Medication Instructions Recorded Aspirin [Ecotrin] 81 mg PO DAILY 11/20/17 Ceftriaxone Sodium [Ceftriaxone] 2 gm IV DAILY #7 11/27/17 Cephalexin [Keflex] 500 mg PO QID #40 capsule 03/22/18 - Allergies Allergies/Adverse Reactions: Allergies Allergy/AdvReac Type Severity Reaction Status Date / Time No Known Allergies Allergy Verified 11/29/17 12:31 Review of Systems ROS Statement: Except As Marked, All Systems Reviewed And Found Negative Constitutional: Positive for: Fever. Negative for: Chills Cardiovascular: Negative for: Chest Pain Gastrointestinal: Positive for: Abdominal Pain Genitourinary Female: Positive for: Dysuria. Negative for: Vaginal Bleeding Musculoskeletal: Positive for: Back Pain, Leg Pain Physical Exam - Reviewed Nursing Documentation Reviewed: Yes Vital Signs Reviewed: Yes - Physical Exam Appears: Positive for: Non-toxic Head Exam: Positive for: ATRAUMATIC, NORMAL INSPECTION, NORMOCEPHALIC Skin: Positive for: Normal Color Eye Exam: Positive for: EOMI, PERRL ENT: Negative for: Pharyngeal Erythema, Tonsillar Exudate, Tonsillar Swelling Neck: Positive for: Painless ROM, Supple Cardiovascular/Chest: Positive for: Regular Rate, Rhythm. Negative for: Tachycardia Respiratory: Positive for: Normal Breath Sounds. Negative for: Wheezing, Respiratory Distress Gastrointestinal/Abdominal: Positive for: Soft, Tenderness (suprapubic te nderness). Negative for: Guarding, Rebound Back: Positive for: R CVA Tenderness. Negative for: Vertebral Tenderness Extremity: Positive for: Normal ROM. Negative for: Pedal Edema, Calf Tenderness Neurological/Psych: Positive for: Awake, Alert, Symmetric/Intact Strength, Oriented (x 3) - Laboratory Results Result Diagrams: 06/10/18 12:10 06/10/18 12:10 - ECG O2 Sat by Pulse Oximetry: 100 (RA) Pulse Ox Interpretation: Normal Medical Decision Making Medical Decision Making: Impression: Leg pain, suprapubic pain, dysuria Differential: UTI, pyelonephritis, complication, r/o DVT Plan: -- UDip -- Labs -- US Doppler right leg -- US OB Transvaginal 1310 US RLE IMPRESSION: No evidence of deep venous thrombosis in the right lower extremity. US OB Transvaginal IMPRESSION: Small gestational sac out of range for calculation gestational age. No visible gestational pole or yolk sac identified. Failure to documented Doppler arterial waveform left adnexa. This should be correlated clinically. If adnexal torsion is suspected, follow-up recommended. Patient informed of imaging results; instructed to follow up in 2 days for repeat US and repeat beta-hcg. Stable for d/c home. Scribe Attestation: Documented by Freda Melvin, acting as a scribe for Tc Perales MD. Provider Scribe Attestation: All medical record entries made by the Scribe were at my direction and personally dictated by me. I have reviewed the chart and agree that the record accurately reflects my personal performance of the history, physical exam, medical decision making, and the department course for this patient. I have also personally directed, reviewed, and agree with the discharge instructions and disposition. Disposition - Clinical Impression Clinical Impression: Threatened , Leg pain - Patient ED Disposition Is Patient to be Admitted: No Doctor Will See Patient In The: Office Counseled Patient/Family Regarding: Studies Performed, Diagnosis, Need For Followup - Disposition Referrals: [facility] [Outside] Disposition: Routine/Home Disposition Time: 14:36 Condition: GOOD Additional Instructions: Return to ER in 2 days for recheck labs Regresa en 2 bose. ASAEL HOLLY, thank you for letting us take care of you today. Your provider was Tc Perales MD and you were treated for RT LEG PAIN/BACK PAIN. The emergency medical care you received today was directed at yo ur acute symptoms. If you were prescribed any medication, please fill it and take as directed. It may take several days for your symptoms to resolve. Return to the Emergency Department if your symptoms worsen, do not improve, or if you have any other problems. Please contact your doctor or call one of the physicians/clinics you have been referred to that are listed on the Patient Visit Information form that is included in your discharge packet. Bring any paperwork you were given at discharge with you along with any medications you are taking to your follow up visit. Our treatment cannot replace ongoing medical care by a primary care provider outside of the emergency department. Thank you for allowing the [facility] team to be part of your care today. If you had an X-Ray or CT scan: A Radiologist will review the ED reading if any change in treatment is needed we will contact you. If you had a blood, urine, or wound culture: It will take several days for the results, if any change in treatment is needed we will contact you. If you had an STI test: It will take 48 hours for the results. Please call after 1 week if you have not heard back. Instructions: Threatened Miscarriage (DC), Hip Pain Forms: [employer] (Latvian), [facility] ED School/Work Excuse Print Language: KOREAN
[2018-06-10 12:25] LABS: SQUAMOUS EPITHIAL 2 /hpf (0-5); URINE BACTERIA RARE (<OCC); URINE BILIRUBIN NEGATIVE (NEGATIVE); URINE BLOOD SMALL (NEGATIVE); URINE CLARITY CLEAR (Clear); URINE COLOR STRAW (YELLOW); URINE GLUCOSE (UA) NEG (NEGATIVE); URINE LEUKOCYTE ESTERASE SMALL Leu/uL (Negative); URINE PROTEIN NEGATIVE (NEGATIVE); URINE UROBILINOGEN 0.2-1.0 mg/dL (0.2-1.0)
[2018-06-10 12:28] LABS: BASO % 0.3 % (0.0-2.0); EOS # 0.1 K/uL (0.0-0.7); EOS % 0.7 % (0.0-4.0); HEMOGLOBIN 12.9 g/dL (12.0-16.0); LYMPH % 26.7 % (20.0-40.0); MEAN CELL VOLUME 82.8 fl (81.0-99.0); MEAN CORPUSCULAR HEMOGLOBIN 27.6 pg (27.0-31.0); MEAN CORPUSCULAR HGB CONC 33.3 g/dL (33.0-37.0); MEAN PLATELET VOLUME 8.8 fl (7.2-11.7); MONO # 0.4 K/uL (0.0-0.8); MONO % 5.5 % (0.0-10.0); NEUT # 5.1 K/uL (1.8-7.0); NEUT % 66.8 % (50.0-75.0); NRBC % 0.2 % (0.0-0.0); RBC 4.68 Mil/uL (3.80-5.20); RED CELL DISTRIBUTION WIDTH 14.3 % (11.5-14.5); WHITE BLOOD COUNT 7.7 K/uL (4.8-10.8)
[2018-06-10 12:31] LABS: INR 1.1; PROTHROMBIN TIME 12.1 Seconds (9.8-13.1)
[2018-06-10 12:32] LABS: BLOOD UREA NITROGEN 8 mg/dl (7-17); CALCIUM 8.9 mg/dL (8.4-10.2); GFR NON-AFRICAN AMERICAN > 60
[2018-06-10 12:34] LABS: PARTIAL THROMBOPLASTIN TIME 35.3 Seconds (25.6-37.1)
--- NOTE | 2018-06-10 14:24 | US ---
Date of service: 06/10/2018 PROCEDURE: Right lower extremity venous duplex Doppler. HISTORY: right leg pain COMPARISON: None available. TECHNIQUE: Common femoral, superficial femoral, popliteal and posterior tibial veins were evaluated. Flow was assessed with color Doppler, compressibility, assessment of phasic flow and augmentation response. FINDINGS: COMMON FEMORAL VEIN: Unremarkable. SUPERFICIAL FEMORAL VEIN: Unremarkable. POPLITEAL VEIN: Unremarkable. POSTERIOR TIBIAL VEIN: Unremarkable. OTHER FINDINGS: Morphologically, unremarkable lymph node(s) right inguinal region 0.8 x 2.5 cm. IMPRESSION: No evidence of deep venous thrombosis in the right lower extremity.
--- NOTE | 2018-06-10 14:29 | US ---
Date of service: 06/10/2018 HISTORY: Lower abdominal pain. LMP 05/07/2018. Relevant medical history: Miscarriage 04/06/2018. COMPARISON: None available. TECHNIQUE: Transvaginal only. Real -time technique with 2D, duplex and color Doppler FINDINGS: UTERUS: Measures 5.5 x 8.2 cm. Normal in size and appearance. No fibroid or other mass lesion seen. ENDOMETRIUM: Measures 12.8 mm in diameter. Tiny saclike structure 2 x 3 mm. No visible yolk sac or pole. CERVIX: No cervical abnormality identified. RIGHT OVARY: Measures 2.2 x 3.3 x 2.6 cm. No solid mass. Normal flow. Multiple subcentimeter follicles. LEFT OVARY: Measures 2.1 x 1.6 x 2.7 cm. No solid mass. Color Doppler flow could not be identified. FREE FLUID: No significant free fluid noted. OTHER FINDINGS: None. IMPRESSION: Small gestational sac out of range for calculation gestational age. No visible gestational pole or yolk sac identified. Failure to documented Doppler arterial waveform left adnexa. This should be correlated clinically. If adnexal torsion is suspected, follow-up recommended.
[2018-06-10 14:46] VITALS: BP 137/72; PULSE 72; RESP 18; TEMP 99.3
== END 2018-06-10 14:51 | disposition home or self-care (01) ==
LOC: H.ER 10:02
DX: O20.0 Threatened abortion (principal); M79.604 Pain in right leg

== ENCOUNTER 2018-06-14 10:16 | Emergency (ER) | payer OTHER ==
[2018-06-14 10:23] VITALS: BMI 29.8
--- NOTE | 2018-06-14 12:05 | ED PDOC ---
HPI: General Adult Time Seen by Provider: 06/14/18 11:10 Chief Complaint (Nursing): Abdominal Pain Chief Complaint (Provider): Pelvic Pain History Per: Patient History/Exam Limitations: language barrier (kenyan Voyce #[id number] (Sarah)) Onset/Duration Of Symptoms: Days (x4) Current Symptoms Are (Timing): Still Present Additional Complaint(s): Patient is a 42 y/o female with a PMHx of DVT and G8:P4 who is following up for blood work in the ED after a threatened on 06/10/2018. Patient reports mild left sided pelvic pain. Patient denies vaginal bleeding. PCP: None Provided Past Medical History Reviewed: Historical Data, Nursing Documentation, Vital Signs Vital Signs: Last Vital Signs Temp 98.9 F 06/14/18 10:22 Pulse 102 H 06/14/18 10:22 Resp 18 06/14/18 10:22 BP 112/64 06/14/18 10:22 Pulse Ox 98 06/14/18 10:22 - Medical History PMH: Deep Vein Thrombosis (Taking asprin) Denies: Chronic Kidney Disease - Surgical History Surgical History: (x2) - Family History Family History: States: Unknown Family Hx - Social History Current smoker - smoking cessation education provided: No Alcohol: None Drugs: Denies - Immunization History Hx Tetanus Toxoid Vaccination: No Hx Influenza Vaccination: No Hx Pneumococcal Vaccination: No - Home Medications Home Medications: Ambulatory Orders Medication Instructions Recorded Aspirin [Ecotrin] 81 mg PO DAILY 11/20/17 - Allergies Allergies/Adverse Reactions: Allergies Allergy/AdvReac Type Severity Reaction Status Date / Time No Known Allergies Allergy Verified 11/29/17 12:31 Review of Systems ROS Statement: Except As Marked, All Systems Reviewed And Found Negative Genitourinary Female: Positive for: Pelvic Pain. Negative for: Vaginal Bleeding Physical Exam - Reviewed Nursing Documentation Reviewed: Yes Vital Signs Reviewed: Yes - Physical Exam Appears: Positive for: No Acute Distress Head Exam: Positive for: ATRAUMATIC, NORMAL INSPECTION, NORMOCEPHALIC Skin: Positive for: Normal Color, Warm, Dry Eye Exam: Positive for: EOMI, Normal appearance, PERRL Neck: Positive for: Normal, Painless ROM, Supple Cardiovascular/Chest: Positive for: Regular Rate, Rhythm. Negative for: Murmur Respiratory: Positive for: Normal Breath Sounds. Negative for: Respiratory Distress Gastrointestinal/Abdominal: Positive for: Normal Exam, Soft. Negative for: Tenderness Pelvic Exam: Positive for: Other (mild left pelvic tenderness) Back: Positive for: Normal Inspection. Negative for: L CVA Tenderness, R CVA Tenderness, Vertebral Tenderness Extremity: Positive for: Normal ROM. Negative for: Pedal Edema, Deformity Neurological/Psych: Positive for: Alert, Oriented - Laboratory Results Result Diagrams: 06/14/18 12:37 - ECG O2 Sat by Pulse Oximetry: 98 (RA) Pulse Ox Interpretation: Normal Medical Decision Making Medical Decision Making: Time: 1206 Impression: Threatened , here for follow up Plan: Beta-HCG, Quantitative CBC Time: 1402 --Beta-HCGs went up 06/10/18 to today HCG is 2921. Provider is waiting on US results. Time: 1309 on 06/10/18 Transvaginal US FINDINGS: UTERUS: Measures 5.5 x 8.2 cm. Normal in size and appearance. No fibroid or other mass lesion seen. ENDOMETRIUM: Measures 12.8 mm in diameter. Tiny saclike structure 2 x 3 mm. No visible yolk sac or pole. CERVIX: No cervical abnormality identified. RIGHT OVARY: Measures 2.2 x 3.3 x 2.6 cm. No solid mass. Normal flow. Multiple subcentimeter follicles. LEFT OVARY: Measures 2.1 x 1.6 x 2.7 cm. No solid mass. Color Doppler flow could not be identified. FREE FLUID: No significant free fluid noted. OTHER FINDINGS: None. IMPRESSION: Small gestational sac out of range for calculation gestational age. No visible gestational pole or yolk sac identified. Failure to documented Doppler arterial waveform left adnexa. This should be correlated clinically. If adnexal torsion is suspected, follow-up recommended. Time: 1522 on 06/14/2018 US transvaginal FINDINGS: UTERUS: Measures 6 x 7.6 x 10.1 cm. Normal in size and appearance. No fibroid or other mass lesion seen. ENDOMETRIUM: Measures 14.6 mm in diameter. Gestational sac, well-formed identified. Mean gestational sac measurement 5.8 mm. Below the threshold for calculation of a reliable gestational age No visible yolk sac or gestational pole identified. CERVIX: No cervical abnormality identified.Incidental finding: Nabothian cysts the largest measures less than 1 cm Closed cervix 4.58 cm. RIGHT OVARY: Measures 2.6 x 3.2 x 2.3 cm. No solid mass. Normal flow. LEFT OVARY: Measures 2.5 x 1.8 x 1.9 cm. No solid mass. Normal flow. FREE FLUID: No significant free fluid noted. OTHER FINDINGS: None. IMPRESSION: Well-formed gestational sac 5.8 mm. Below the threshold for calculation of a reliable gestational age No visible yolk sac or pole. Unremarkable adnexa. Time: [address] Henriquez of [facility] who believes this increase is hcg (which is still low) is early , consistent with the definitive gestational sac seen today. she is recommending Followup in one week at clinic. Return precautions given such as increased bleeding or pain. she understood, everything done via reel stripper. see above. on reeval, she is comfortable and in no distress. ------ Scribe Attestation: Documented by Jesus Barth, acting as a scribe for Medina Ramirez MD. Provider Scribe Attestation: All medical record entries made by the Scribe were at my direction and personally dictated by me. I have reviewed the chart and agree that the record accurately reflects my personal performance of the history, physical exam, medical decision making, and the department course for this patient. I have also personally directed, reviewed, and agree with the discharge instructions and disposition. Disposition - Clinical Impression Clinical Impression: - Patient ED Disposition Is Patient to be Admitted: No Counseled Patient/Family Regarding: Studies Performed, Diagnosis, Need For Followup - Disposition Referrals: [facility] [Outside] [facility] [Outside] Disposition: Routine/Home Disposition Time: 16:45 Condition: IMPROVED Additional Instructions: follow up with the OBGYN clinic in 7 days for further evaluation take vitamins return to the ED with any worsening or concerning symptoms Instructions: Medications and Forms: [employer] (Salvadorean), [employer] (Colombian) Print Language: MALAWIAN
[2018-06-14 13:26] LABS: BASO % 0.2 % (0.0-2.0); EOS # 0.1 K/uL (0.0-0.7); HEMOGLOBIN 12.6 g/dL (12.0-16.0); LYMPH # 2.3 K/uL (1.0-4.3); LYMPH % 31.2 % (20.0-40.0); MEAN CELL VOLUME 83.7 fl (81.0-99.0); MEAN CORPUSCULAR HEMOGLOBIN 26.7 pg (27.0-31.0); MEAN CORPUSCULAR HGB CONC 31.9 g/dL (33.0-37.0); MONO # 0.5 K/uL (0.0-0.8); MONO % 6.7 % (0.0-10.0); NEUT # 4.4 K/uL (1.8-7.0); NEUT % 60.9 % (50.0-75.0); NRBC % 0.1 % (0.0-0.0); RBC 4.72 Mil/uL (3.80-5.20); RED CELL DISTRIBUTION WIDTH 14.4 % (11.5-14.5); WHITE BLOOD COUNT 7.2 K/uL (4.8-10.8)
--- NOTE | 2018-06-14 15:26 | US ---
Date of service: 06/14/2018 HISTORY: Follow-up. LMP 05/07/2018. Beta HCG results: 2921.3 units. COMPARISON: 06/10/2018. TECHNIQUE: Transvaginal only. Real -time technique with 2D, duplex and color Doppler FINDINGS: UTERUS: Measures 6 x 7.6 x 10.1 cm. Normal in size and appearance. No fibroid or other mass lesion seen. ENDOMETRIUM: Measures 14.6 mm in diameter. Gestational sac, well-formed identified. Mean gestational sac measurement 5.8 mm. Below the threshold for calculation of a reliable gestational age No visible yolk sac or gestational pole identified. CERVIX: No cervical abnormality identified.Incidental finding: Nabothian cysts the largest measures less than 1 cm Closed cervix 4.58 cm. RIGHT OVARY: Measures 2.6 x 3.2 x 2.3 cm. No solid mass. Normal flow. LEFT OVARY: Measures 2.5 x 1.8 x 1.9 cm. No solid mass. Normal flow. FREE FLUID: No significant free fluid noted. OTHER FINDINGS: None. IMPRESSION: Well-formed gestational sac 5.8 mm. Below the threshold for calculation of a reliable gestational age No visible yolk sac or pole. Unremarkable adnexa.
[2018-06-14 17:19] VITALS: BP 110/64; PULSE 77; RESP 16; TEMP 98.8
[2018-06-15 10:19] VITALS: O2SAT 98
== END 2018-06-14 18:00 | disposition home or self-care (01) ==
LOC: H.ER 10:16
DX: O26.899 Other specified pregnancy related conditions, unspecified trimester (principal); O34.80 Maternal care for other abnormalities of pelvic organs, unspecified trimester; N88.8 Other specified noninflammatory disorders of cervix uteri